=== PATIENT | male | born 1965 | race Caucasian/White ===

== ENCOUNTER 2016-10-23 04:23 | Inpatient (IN) ==
[2016-10-23] MEDS ORDERED: SODIUM CHLORIDE 0.9% 1,000 ML IV STA (04:42)
[2016-10-23] MEDS ORDERED: ASPIRIN 325 MG TABLET PO STA (04:42)
[2016-10-23] MEDS ORDERED: DILTIAZEM 50 MG/10 ML VIAL IV STA (04:43)
[2016-10-23] MEDS ORDERED: ASPIRIN 325 MG TABLET ONE (04:58)
[2016-10-23 05:01] LABS: Basophils % 0.4 % (0.0-0.8); Eosinophils # 0.3 10*3/uL (0.0-0.87); Hematocrit 36.3 VOL% (42.0-52.0); Hemoglobin 12.4 GM/DL (14.0-18.0); Immature Granulocytes % 0.3 %; Immature Granulocytes Absolute 0.03 #; Lymphocytes % 33.3 % (21.2-54.2); Mean Corpuscular HGB Conc 34.2 GM/DL (32-36); Mean Corpuscular Hemoglobin 29 PG (27-34); Mean Corpuscular Volume 83.6 FL (87-102); Mean Platelet Volume 9.3 FL (9.6-12.0); Monocytes # 0.9 10*3/uL (0.11-0.8); Monocytes % 9.7 % (1.7-12.7); Neutrophils # 4.8 10*3/uL (1.4-7.4); Neutrophils % 53.3 % (38.7-73.9); Platelet Count 418 T/CUMM (130-400); Red Blood Count 4.34 MC/CUMM (3.8-5.5); Red Cell Distribution Width 14.6 % (9.3-17.3); White Blood Count 8.9 T/CUMM (4-12)
[2016-10-23 05:22] LABS: PT Patient Result 10.7 SECS
[2016-10-23 05:46] LABS: Calcium 8.6 MG/DL (8.5-10.1); Osmolality,Calculated 278.3 MOS/KG (273-304); Potassium 3.3 MMOL/L (3.5-5.1)
--- NOTE | 2016-10-23 05:47 | Emergency Department Note ---
INatalee Emily, am scribing for, and in the presence of, Brad Oseguera MD 04: 49. IOumar Kevin Lee, MD, personally performed the services described in this documentation, ascribed by Latisha Albright in my presence, and it is both accurate and complete . Arrival - Arrival Chief Complaint: Chest Pain Stated Complaint: NECK PAIN AND CHEST TIGHTNESS NAUSEA ED Nursing Triage Note: Pt to triage with c/o chest pain, nausea, weakness, dizzy and left neck pain that started an hour [employer]. Mode of Arrival: Ambulatory Limitations: No Limitations Source: Patient, Significant other - History of Present Illness HPI Narrative: Pt is a 51 y/o male who came to ED with c/o left neck pain and rapid palpitations that suddenly started this morning. Pt sees Dr. Liborio Flannery PCP. Pt is actively shaking suddenly that did not start until in the ED. Pt was seen at [facility] by Dr. Fulton and told her was in top 1% to have these sxs. Pt denies smoking tobacco and drinking ETOH. 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 No other complaint/pain in ED. Onset (ago): hour(s) Consistency: constant Severity: moderate Severity scale (1-10): 5 Quality: other (racing) Allergies/Adverse Reactions: Allergies Allergy/AdvReac Type Severity Reaction Status Date / Time iodine Allergy Severe ANAPHYLAXIS Verified 10/23/16 04:32 Home Medications: Home Medications Medication Instructions Recorded Confirmed Type HYDROcodone/ACETAMIN 10-325 [[place] 1 tablet PO Q6H 01/30/16 10/23/16 History 10-325] Albuterol Sulfate [Proair HFA] 2 puff INH BID 04/26/16 10/23/16 History Aspirin [Ecotrin] 325 mg PO QAM PRN 04/26/16 10/23/16 History Atorvastatin [Lipitor] 10 mg PO BEDTIME 04/26/16 10/23/16 History Gabapentin 300 mg PO Q8H 04/26/16 10/23/16 History hydroCHLOROthiazide 12.5 mg PO DAILY 04/26/16 10/23/16 History [Hydrochlorothiazide] Fluticasone 50 Mcg Nasal [place] 2 spray BOTH NARES DAILY 05/02/16 10/23/16 History [Flonase Nasal [place]] Multivit-Mins/Iron/Folic/Lycop 1 each PO DAILY 05/02/16 10/23/16 History [Centrum Men's Tablet] Naproxen [Naprosyn Tab] 500 mg PO Q12H PRN #30 tablet 09/07/16 10/23/16 Rx Docusate Sodium [Stool Softener] 2 tablet PO DAILY 10/23/16 10/23/16 History Fexofenadine [Patricia] 180 mg PO DAILY 10/23/16 10/23/16 History Fluticasone/Salmeterol 250-50 1 puff INH BID 10/23/16 10/23/16 History [Advair 250-50] Omeprazole [Prilosec] 40 mg PO DAILY 10/23/16 10/23/16 History Review of System - Review of System 12 point system: reviewed and no additional remarkable complaints except as stated - Review of System Constitutional: Present: other (shaking in ED). Absent: diaphoresis, fever Respiratory: Absent: respiratory distress Cardiovascular: Present: palpitations (racing). Absent: chest pain, syncope Gastrointestinal: Absent: abdominal pain, nausea, vomiting Musculoskeletal: Present: neck pain (left sided). Absent: arm pain, back pain, leg pain Skin: Absent: rash Neurological: Absent: headache Medical,Surgical,& Family Hx - Medical History Cardio: History of: Hypertension Psychological: History of: Depression (ptsd), Psychiatric Problems (PTSD) HEENT: History of: HEENT Problems (septoplasty) Respiratory: History of: Bronchitis Genitourinary: History of: Kidney Stones Musculoskeletal: History of: Back/Neck Problems Hematology: No history of: Anemia - Surgical History Abdominal Surgeries: Surgical HX of: Appendectomy, Colonoscopy Reproductive Surgeries: Surgical HX of;: Vasectomy Orthopedic Surgeries: Surgical HX of;: Orthopedic Surgery (jaw surgery) - Family History Family History: Reports;: Family Heart Disease (mother and father), Family Hypertension (mother), Family Stroke (mother tia) - Social History Smoking Status: Never smoker Frequency of Alcohol Use: None Type of Drug Use: None Marital Status: Lives With:: Spouse Functional capacity: independent ambulation Exam Vital Signs: Vital Signs Temperature 98.4 F 10/23/16 04:27 Pulse Rate 99 H 10/23/16 04:27 Respiratory Rate 20 10/23/16 04:30 Blood Pressure 122/91 10/23/16 04:27 O2 Sat by Pulse Oximetry 98 10/23/16 04:45 - General General appearance: alert, anxious (trembling actively) - Head Head exam: Present: atraumatic, normocephalic - Eye Eye exam: Present: PERRL, EOMI - ENT ENT exam: Present: mucous membranes moist. Absent: mucous membranes dry - Neck Neck exam: Present: full ROM. Absent: tenderness - Chest Chest inspection: Present: symmetric chest wall rise - Respiratory Respiratory exam: Present: normal lung sounds bilaterally. Absent: respiratory distress - Cardiovascular Cardiovascular exam: Present: tachycardia, irregular rhythm - Extremities Exam Extremities exam: Present: full ROM, pedal edema - Neurological Exam Neurological exam: Present: alert, oriented X3, CN II-XII intact. Absent: motor sensory deficit - Psychiatric Psychiatric exam: Present: normal affect, anxious - Skin Skin exam: Present: warm, dry Course Course Narrative: pts rate improved with fluids and dilt IV. pt remains in afib will admit for tele and cards eval Results - Labs CBC & BMP: 10/23/16 04:42 Lab Results: I have reviewed the patients labs Labs: Laboratory Tests 10/23/16 04:42 WBC 8.9 RBC 4.34 Hgb 12.4 L Hct 36.3 L MCV 83.6 L Plt Count 418 H MPV 9.3 L [place] # (Auto) 0.9 H Laboratory Tests 10/23/16 04:42 WBC 8.9 RBC 4.34 Hgb 12.4 L Hct 36.3 L MCV 83.6 L Plt Count 418 H MPV 9.3 L [place] # (Auto) 0.9 H Laboratory Tests 10/23/16 04:42 INR 1.0 PT Patient/Control Mix 10.7 Laboratory Tests 10/23/16 10/23/16 04:42 04:42 Magnesium 2.2 Troponin I < 0.015 - Diagnostic Findings Procedure: Chest x-ray: image reviewed by me (no acute) Disposition Clinical Impression: afib rvr new onset Case discussed with: patient Disposition: Still a Patient Condition: Stable
--- NOTE | 2016-10-23 05:57 | EKG Report ---
Stationary ECG Study [facility] ER Test Date: 10/23/2016 4:28:03 AM Pat Name: EARLINE HAND Department: Room: Gender: M Fisher Seal: Jenniffer : 1965 Requested by: Brad Guillen Order Number: [id number] Reading MD: JOSE L BENZ Intervals [place] Rate: 145 P: 999 SC: 0 QRS: 70 QRSD: 82 T: -15 QT: 220 QTc: 303 Interpretive Statements ATRIAL FIBRILLATION WITH RAPID VENTRICULAR RESPONSE Electronically Signed On 10-23-16 13:07:23 CDT by JOSE L BENZ [email or web address]
[2016-10-23 06:09] LABS: Free T4 (Free Thyroxine) 1.15 NG/DL (0.76-1.46); Thyroid Stimulating Hormone 2.79 uIU/ml (0.358-3.74)
--- NOTE | 2016-10-23 06:17 | Hospitalist History & Physical ---
Assessment and Plan (1) Atrial fibrillation with RVR Status: Acute Current Visit: Yes (2) Insomnia Status: Acute Current Visit: Yes (3) Chest pain Status: Acute Current Visit: No (4) Depression Status: Chronic Assessment and plan: Patient will be admitted to telemetry. We will replete his potassium. Consult cardiology. Continue home meds as appropriate. Check a free T4 and TSH. Current Visit: No Qualifiers: Depression Type: unspecified Qualified Code(s): F32.9 - Major depressive disorder, single episode, unspecified History of Present Illness Chief complaint: Palpitations History of present illness: Mr. Santana is a 51 year old male with past medical history significant for chronic insomnia tricuspid regurg hypertension obstructive sleep apnea and low back pain who was in his normal state of health until the past week. Patient's been having a sensation of palpitations for the past week. Patient denies excessive caffeine intake. Tonight he was sitting and had not gone to bed yet and all of a sudden he felt like he was running a marathon. He stood up and it kept going and he told his about it. They checked his blood pressure and it was 130/100 which is a little bit on the high side for him. He is talked in terms of a chest pain in the center of his chest. It seemed like it radiated to his neck. He broke out in a sweat and felt dizzy and lightheaded. He said he was not short of breath but it made him feel like pressure made it difficult for him to breathe. Patient found to be in A. fib with RVR and I was consulted to admit him to the emergency room. He normally sees [facility] and has seen a cardiology for [facility] for his tricuspid regurg. He reports that he had a stress test with Lexiscan recently. Home Medications Medication Instructions Recorded Confirmed Type HYDROcodone/ACETAMIN 10-325 [[place] 1 tablet PO Q6H 01/30/16 10/23/16 History 10-325] Albuterol Sulfate [Proair HFA] 2 puff INH BID 04/26/16 10/23/16 History Aspirin [Ecotrin] 325 mg PO QAM PRN 04/26/16 10/23/16 History Atorvastatin [Lipitor] 10 mg PO BEDTIME 04/26/16 10/23/16 History Gabapentin 300 mg PO Q8H 04/26/16 10/23/16 History hydroCHLOROthiazide 12.5 mg PO DAILY 04/26/16 10/23/16 History [Hydrochlorothiazide] Fluticasone 50 Mcg Nasal [place] 2 spray BOTH NARES DAILY 05/02/16 10/23/16 History [Flonase Nasal [place]] Multivit-Mins/Iron/Folic/Lycop 1 each PO DAILY 05/02/16 10/23/16 History [Centrum Men's Tablet] Naproxen [Naprosyn Tab] 500 mg PO Q12H PRN #30 tablet 09/07/16 10/23/16 Rx Docusate Sodium [Stool Softener] 2 tablet PO DAILY 10/23/16 10/23/16 History Fexofenadine [Patricia] 180 mg PO DAILY 10/23/16 10/23/16 History Fluticasone/Salmeterol 250-50 1 puff INH BID 10/23/16 10/23/16 History [Advair 250-50] Omeprazole [Prilosec] 40 mg PO DAILY 10/23/16 10/23/16 History Allergies Allergy/AdvReac Type Severity Reaction Status Date / Time iodine Allergy Severe ANAPHYLAXIS Verified 10/23/16 04:32 Medical,Surgical,& Family Hx - Medical History Cardio: History of: Hypertension Psychological: History of: Depression (ptsd), Psychiatric Problems (PTSD) HEENT: History of: HEENT Problems (septoplasty) Respiratory: History of: Bronchitis Genitourinary: History of: Kidney Stones Musculoskeletal: History of: Back/Neck Problems Hematology: No history of: Anemia - Surgical History Abdominal Surgeries: Surgical HX of: Appendectomy, Colonoscopy Reproductive Surgeries: Surgical HX of;: Vasectomy Orthopedic Surgeries: Surgical HX of;: Orthopedic Surgery (jaw surgery) - Family History Family History: Reports;: Family Heart Disease (mother and father), Family Hypertension (mother), Family Stroke (mother tia) - Social History Smoking Status: Never smoker Frequency of Alcohol Use: None Type of Drug Use: None 12 point system: reviewed and no additional remarkable complaints except as stated Exam - Constitutional Vitals: Period Temp Pulse Resp BP Sys/Mason Pulse Ox Last 24 Hr 98.4 F-98.4 F 99-99 18-20 122-122/91-91 97-98 General appearance: normal weight - Head Head exam: Present: normal inspection - Eye Eye exam: Present: EOMI Pupils: Present: MAXIM - ENT ENT exam: Present: normal exam - Neck Neck exam: Present: normal inspection - Respiratory Respiratory exam: Present: clear to auscultation bilaterally - Cardiovascular Cardiovascular exam: Present: irregular rhythm - GI/Abdominal GI/Abdominal exam: Present: normal bowel sounds - Extremities Exam Extremities exam: Present: normal inspection - Back Exam Back exam: Present: normal inspection - Neurological Exam Neurological exam: Present: alert, oriented X3 - Psychiatric Psychiatric exam: Present: normal affect, normal mood - Skin Skin exam: Present: normal color Results - Labs CBC & BMP: 10/23/16 04:42 10/23/16 04:42
[2016-10-23] MEDS ORDERED: ACETAMINOPHEN 325 MG TABLET PO PRN (06:20)
[2016-10-23] MEDS ORDERED: ZALEPLON 5 MG CAPSULE PO PRN (06:20)
[2016-10-23] MEDS ORDERED: POTASSIUM CHLORIDE 20 MEQ TABLET PO PRN (06:25)
[2016-10-23] MEDS ORDERED: ASPIRIN EC 325 MG TABLET PO PRN (06:27)
[2016-10-23] MEDS ORDERED: NAPROXEN 500 MG TABLET PO PRN (06:27)
[2016-10-23] MEDS ORDERED: GABAPENTIN 300 MG CAPSULE PO SCH ×2 (06:30→21:00)
[2016-10-23] MEDS: ALBUTEROL 2.5 MG/3 ML NEB RESP TX SCH ×2 (07:32→19:49)
--- NOTE | 2016-10-23 07:34 | EKG Report ---
Stationary ECG Study [facility] Test Date: 10/23/2016 7:32:44 AM Pat Name: EARLINE HAND Department: Room: 281 Gender: M Chief Of Staff: : 1965 Requested by: Brad Guillen Order Number: [id number] Reading MD: JOSE L BENZ Intervals [place] Rate: 91 P: 999 [place]: 0 QRS: 40 QRSD: 76 T: 41 QT: 334 QTc: 383 Interpretive Statements ATRIAL FIBRILLATION ABNORMAL RHYTHM ECG Electronically Signed On 10-23-16 13:08:54 CDT by JOSE L BENZ [email or web address]
--- NOTE | 2016-10-23 07:50 | XRay Report ---
XR chest 1V portable Indication: Chest pain Comparison: Chest x-ray dated September 07, 2016 Technique: Single frontal view of the chest. Findings: The cardiomediastinal silhouette is stable in configuration. Chronic change of the lungs without focal consolidation, pleural effusion, or pneumothorax. Visualized osseous and surrounding soft tissue structures appear grossly unchanged. IMPRESSION: Stable chest x-ray without acute cardiopulmonary process demonstrated. PROCEDURE INTERPRETED AT [facility] DEPARTMENT OF RADIOLOGY Final Report Signed by: Dr Tay Hua
[2016-10-23] MEDS: DILTIAZEM INJ 100 MG in SODIUM CHLORIDE 0.9% 100 ML IV SCH (08:02)
[2016-10-23] MEDS: ENOXAPARIN 100 MG/ML SYRINGE SUBCUT SCH ×3 (08:02→21:20)
[2016-10-23] MEDS: FLUTICASONE/SALMETEROL 250-50 DISKUS 14 DOSE INH SCH ×2 (08:49→21:18)
[2016-10-23] MEDS: FEXOFENADINE 180 MG TABLET PO SCH (08:49)
[2016-10-23] MEDS: FLUTICASONE 50 MCG NASAL SPRAY 16 GM BOTTLE BOTH NARES SCH (08:49)
[2016-10-23] MEDS: DOCUSATE SODIUM 100 MG CAPSULE PO SCH (08:49)
[2016-10-23] MEDS: MULTIVITAMIN (CENTRUM) TABLET PO SCH (08:49)
[2016-10-23] MEDS: PANTOPRAZOLE 40 MG TABLET PO SCH (08:50)
[2016-10-23] MEDS: NAPROXEN 250 MG TABLET PO SCH ×2 (08:50→21:23)
[2016-10-23] MEDS ORDERED: hydroCHLOROthiazide 12.5 MG CAPSULE PO SCH (09:00)
--- NOTE | 2016-10-23 10:43 | EKG Report ---
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
[2016-10-23] MEDS: DILTIAZEM 60 MG TABLET PO SCH ×3 (10:53→22:59)
[2016-10-23] MEDS ORDERED: KETOROLAC 30 MG/1 ML VIAL IV ONE (11:01)
[2016-10-23] MEDS ORDERED: POTASSIUM CHLORIDE 20 MEQ TABLET PO ONE (11:06)
--- NOTE | 2016-10-23 20:06 | Cardiology Consult Note ---
I, Denise Stone, MONIE, am scribing for, and in the presence of, Sonido Jo MD 20:04. Assessment and Plan - Time spent with patient Time spent with patient: Greater than 30 minutes (1) Atrial fibrillation with RVR Status: Acute Assessment and plan: The A. fib RVR is probably the cause of his chest pain He had a recent treadmill and echo which showed no ischemia--and no structural abnormality, per patient--we will get these in reviewing the CHAD2S VASCF SCORE is 1, so long-term we will probably keep him on a baby aspirin daily I discussed with the patient the benefits of stopping tobacco/nicotine, the problems with continuing to use it, and options of treatment. The patient is considering this option. The atrial fib is probably due to the hypokalemia We will replete k We will add oral Cardizem Monitor closely If he is doing well overnight we might be able to let him go home with follow- up. The patient has expressed he would not go back to [place]. He apparently had a bad experience there. 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 Current Visit: Yes (2) Hypertension Status: Chronic Current Visit: Yes (3) Dyslipidemia Status: Chronic Assessment and plan: SEE LISTED IN PLAN OF CARE BELOW Current Visit: Yes (4) Chronic pain Status: Acute Assessment and plan: SEE LISTED IN PLAN OF CARE BELOW Current Visit: Yes (5) Chest pain Status: Acute Assessment and plan: SEE LISTED IN PLAN OF CARE BELOW Current Visit: No (6) Tricuspid valve regurgitation Status: Chronic Assessment and plan: SEE LISTED IN PLAN OF CARE BELOW Current Visit: Yes History of Present Illness - Data of Consult Patient: new to practice Consult date: 10/23/16 Requesting Physician: Jose Manuel Browning - Consult Narrative Reason for consult: AFIB 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 Jacobs Mr. Santana is a 51 WM, who presented to the emergency room with complaints of heart palpitations with midsternal chest pain. Significant cardiac history includes hypertension, tricuspid valve regurgitation, GUI, dyslipidemia. He does report a positive family history of cardiac disease in both his mother and father. The patient denies history of or current smoking, alcohol use, or illicit drug use. The patient reports he noted an onset of palpitations approximately 1 week ago, and this worsened during the night. The patient denies shortness of breath, fatigue edema, hematemesis, nausea, or vomiting with this episode. In the ED, an EKG revealed atrial fibrillation with RVR. He was given a Cardizem bolus in the ER, but a drip was not continued due to hypotension. Lovenox as well as aspirin were initiated in the ER. The patient states that he recently had an echocardiogram and a cardiac stress test in July 2016. This was performed at [facility] by his steel roller, Dr. Jacobs. These records have been requested and are not currently available. The patient denies previous arrhythmias or palpitations related to his history of TR. The patient has been admitted to the telemetry unit. Currently the patient is awake and alert, oriented 3. Labs reviewed with hemoglobin and hematocrit noted at 12.4 and 36.3, platelets elevated, 418; PT 10.7 and INR 1.0; potassium 3.3, otherwise electrolytes WNL; creatinine 0.8 BUN 8; TSH 2.79 and T4 1.15; BNP 19; troponins negative. Chest x-ray is without acute cardiopulmonary process EKG reveals AFIB with a rate in the 90s. The patient denies shortness of breath. Potassium has been replaced and Cardizem started orally as long as his blood pressure tolerates. ASSESSMENT/PLAN: 1. NEW ONSET AFIB WITH RVR -start Cardizem 60 mg p.o. every 6 hours hold for SBP < 100 mmHg, continue telemetry monitoring, continue Lovenox 90 subcu every 12. 2. HYPERTENSION -close monitoring and adjust medications during hospitalization accordingly. 3. TRICUSPID VALVE REGURGITATION -requested most recent echocardiogram, patient states performed 07/2016. 4. CHRONIC PAIN -continue home medications. 5. CHEST PAIN -cardiac biomarkers negative, currently free of chest pain. 6. DYSLIPIDEMIA -continue Lipitor 10 mg every evening. CC: Arvind Fischer MD - Home Medications and Allergies Home Medications: Home Medications Medication Instructions Recorded Confirmed Type HYDROcodone/ACETAMIN 10-325 [[place] 1 tablet PO QID 01/30/16 10/23/16 History 10-325] Albuterol Sulfate [Proair HFA] 2 puff INH BID 04/26/16 10/23/16 History Atorvastatin [Lipitor] 10 mg PO BEDTIME 04/26/16 10/23/16 History Gabapentin 300 mg PO BEDTIME 04/26/16 10/23/16 History Fluticasone 50 Mcg Nasal [place] 2 spray BOTH NARES DAILY 05/02/16 10/23/16 History [Flonase Nasal [place]] Multivit-Mins/Iron/Folic/Lycop 1 each PO DAILY 05/02/16 10/23/16 History [Centrum Men's Tablet] Docusate Sodium [Stool Softener] 2 tablet PO DAILY 10/23/16 10/23/16 History Ergocalciferol (Vitamin D2) 50,000 unit PO RYAN 10/23/16 10/23/16 History [Vitamin D2] Fexofenadine [Patricia] 180 mg PO DAILY 10/23/16 10/23/16 History Fluticasone/Salmeterol 250-50 1 puff INH BID 10/23/16 10/23/16 History [Advair 250-50] Naproxen [Naprosyn Tab] 220 mg PO BID 10/23/16 10/23/16 History Omeprazole [Prilosec] 40 mg PO DAILY 10/23/16 10/23/16 History hydroCHLOROthiazide 12.5 mg PO DAILY 10/23/16 10/23/16 History [Hydrochlorothiazide] Allergies/Adverse Reactions: Allergies Allergy/AdvReac Type Severity Reaction Status Date / Time iodine Allergy Severe ANAPHYLAXIS Verified 10/23/16 04:32 - Constitutional Constitutional: Absent: fatigue, lethargy, malaise, weakness - EENT Eyes: Absent: loss of vision Ears: Absent: decreased hearing Nose, mouth and throat: Absent: headache(s) - Cardiovascular Cardiovascular: Present: chest pain at rest, palpitations. Absent: diaphoresis , dyspnea, dyspnea on exertion, edema, lightheadedness, orthopnea - Respiratory Respiratory: Absent: cough, dyspnea, dyspnea on exertion, wheezing - Gastrointestinal Gastrointestinal: Absent: abdominal pain, coffee ground emesis, hematemesis, melena, nausea, vomiting - Genitourinary Genitourinary: Absent: difficulty urinating - Musculoskeletal Musculoskeletal: Present: back pain - Neurological Neurological: Absent: abnormal gait, abnormal speech, confusion, dizziness - Psychiatric Psychiatric: Absent: anxiety - Endocrine Endocrine: Absent: fatigue - Hematologic/Lymphatic Hematologic/Lymphatic: Absent: easy bleeding, easy bruising Medical,Surgical,& Family Hx - Medical History Cardio: History of: Cardiac Dysrhythmia (afib), Hypertension Psychological: History of: Depression (ptsd), Psychiatric Problems (PTSD) HEENT: History of: HEENT Problems (septoplasty) Respiratory: History of: Bronchitis Genitourinary: History of: Kidney Stones Musculoskeletal: History of: Back/Neck Problems Hematology: No history of: Anemia - Surgical History Abdominal Surgeries: Surgical HX of: Appendectomy, Colonoscopy Reproductive Surgeries: Surgical HX of;: Vasectomy Orthopedic Surgeries: Surgical HX of;: Orthopedic Surgery (jaw surgery) - Family History Family History: Reports;: Family Heart Disease (mother and father), Family Hypertension (mother), Family Stroke (mother tia) Additional Family History: spH y y y y , latter day - Social History Smoking Status: Never smoker Frequency of Alcohol Use: None Type of Drug Use: None Marital Status: Lives With:: Spouse Functional capacity: independent ambulation Physical Examination Vital Signs Temp Pulse Resp BP Pulse Ox 98.4 F 99 H 18 122/91 97 10/23/16 04:27 10/23/16 04:27 10/23/16 04:27 10/23/16 04:27 10/23/16 04:27 Exam: General: [Appears well with no apparent distress.] [Pleasant and cooperative. ] [Appears comfortable.] HEENT: [PERRL, normocephalic, atraumatic]. [Mucous membranes moist.] [No jaundice noted.] [Conjunctiva moist and clear, sclerae anicteric.] Neck: [No JVD/HJR, no thyromegaly or lymphadenopathy noted.] [ No carotid bruit appreciated.] Cardiac: [Irregular rate and rhythm.] [No murmur rub or gallop.] [PMI is nondisplaced.] Lungs: [Clear to auscultation without accessory muscle use to assist the respiratory pattern.] [Oxygen in use via nasal cannula.] Abdomen: [Soft, bowel sounds normoactive.] [Nontender and nondistended.] [No abdominal bruit or thrill noted.] [No masses noted.] Musculoskeletal: [No fluid collection.] [Full range of motion is noted.] Extremities: [No clubbing, cyanosis noted.] [ No edema noted.] [Upper extremity pulses 2+.] [Lower extremity pulses 2+.] [Capillary refill less than 3 seconds.] Skin: [No unusual lesions or rashes.] [No skin breakdown appreciated.] Neuro: [Awake, alert and oriented 3.] [Moves all extremities well without hemiparesis or paralysis.] [No essential tremor is appreciated.] Result/EKG - Labs CBC & BMP: 10/23/16 04:42 10/23/16 04:42 Lab Results: I have reviewed the past 24 hour labs Labs: Laboratory Results - last 24 hr 10/23/16 10/23/16 10/23/16 04:42 04:42 04:42 WBC RBC Hgb Hct MCV MCH MCHC RDW Plt Count MPV Neut % (Auto) Lymph % (Auto) [place] % (Auto) Eos % (Auto) Baso % (Auto) Neut # (Auto) Lymph # (Auto) [place] # (Auto) Eos # (Auto) Baso # (Auto) Immature Gran % Nucleated RBC % Immature Gran # Nucleated RBCs # Immature Plt Fraction INR 1.0 PT Patient/Control Mix 10.7 Sodium 141 Potassium 3.3 L Chloride 104 Carbon Dioxide 27 Anion Gap 13.3 BUN 8 Creatinine 0.80 GFR Calculation 131 BUN/Creatinine Ratio 10.00 Glucose 104 Calculated Osmolality 278.3 Calcium 8.6 Magnesium Troponin I < 0.015 B-Natriuretic Peptide Free T4 TSH 3rd Generation 10/23/16 10/23/16 10/23/16 04:42 04:42 04:42 WBC 8.9 RBC 4.34 Hgb 12.4 L Hct 36.3 L MCV 83.6 L MCH 29 MCHC 34.2 RDW 14.6 Plt Count 418 H MPV 9.3 L Neut % (Auto) 53.3 Lymph % (Auto) 33.3 [place] % (Auto) 9.7 Eos % (Auto) 3.0 Baso % (Auto) 0.4 Neut # (Auto) 4.8 Lymph # (Auto) 3.0 [place] # (Auto) 0.9 H Eos # (Auto) 0.3 Baso # (Auto) 0.0 Immature Gran % 0.3 Nucleated RBC % 0.0 Immature Gran # 0.03 Nucleated RBCs # 0.00 Immature Plt Fraction 0.0 INR PT Patient/Control Mix Sodium Potassium Chloride Carbon Dioxide Anion Gap BUN Creatinine GFR Calculation BUN/Creatinine Ratio Glucose Calculated Osmolality Calcium Magnesium 2.2 Troponin I B-Natriuretic Peptide 19 Free T4 TSH 3rd Generation 10/23/16 10/23/16 04:49 08:12 WBC RBC Hgb Hct MCV MCH MCHC RDW Plt Count MPV Neut % (Auto) Lymph % (Auto) [place] % (Auto) Eos % (Auto) Baso % (Auto) Neut # (Auto) Lymph # (Auto) [place] # (Auto) Eos # (Auto) Baso # (Auto) Immature Gran % Nucleated RBC % Immature Gran # Nucleated RBCs # Immature Plt Fraction INR PT Patient/Control Mix Sodium Potassium Chloride Carbon Dioxide Anion Gap BUN Creatinine GFR Calculation BUN/Creatinine Ratio Glucose Calculated Osmolality Calcium Magnesium Troponin I < 0.015 B-Natriuretic Peptide Free T4 1.15 TSH 3rd Generation 2.790 - Diagnostic Findings Procedure: Chest x-ray: report reviewed by me - EKG EKG results: interpreted by me EKG shows: atrial fibrillation IDeysi Dale, MD, personally performed the services described in this documentation, ascribed by Denise Stone NP in my presence, and it is both accurate and complete .
[2016-10-23] MEDS ORDERED: ATORVASTATIN 10 MG TABLET PO SCH (21:00)
[2016-10-24 05:04] LABS: Basophils % 0.4 % (0.0-0.8); Eosinophils # 0.2 10*3/uL (0.0-0.87); Eosinophils % 2.6 % (0.00-10.9); Hematocrit 34.9 VOL% (42.0-52.0); Hemoglobin 11.5 GM/DL (14.0-18.0); Immature Granulocytes % 0.4 %; Immature Granulocytes Absolute 0.03 #; Lymphocytes # 2.8 10*3/uL (1.4-4.0); Lymphocytes % 34.5 % (21.2-54.2); Mean Corpuscular Hemoglobin 28 PG (27-34); Mean Corpuscular Volume 85.1 FL (87-102); Mean Platelet Volume 9.4 FL (9.6-12.0); Monocytes # 0.7 10*3/uL (0.11-0.8); Monocytes % 8.5 % (1.7-12.7); Neutrophils # 4.3 10*3/uL (1.4-7.4); Neutrophils % 53.6 % (38.7-73.9); Platelet Count 393 T/CUMM (130-400); Red Cell Distribution Width 14.7 % (9.3-17.3)
[2016-10-24] MEDS: DILTIAZEM 60 MG TABLET PO SCH (05:29)
[2016-10-24 05:35] LABS: Calcium 8.6 MG/DL (8.5-10.1); Magnesium 2.3 MG/DL (1.8-2.4); Osmolality,Calculated 278.1 MOS/KG (273-304); Potassium 3.9 MMOL/L (3.5-5.1)
[2016-10-24 05:36] LABS: Calcium 8.7 MG/DL (8.5-10.1); Osmolality,Calculated 277.3 MOS/KG (273-304); Potassium 3.9 MMOL/L (3.5-5.1)
[2016-10-24 05:40] LABS: Risk Ratio 4.16; VLDL CHOLESTEROL 19.8 MG/DL
[2016-10-24] MEDS: DILTIAZEM INJ 100 MG in SODIUM CHLORIDE 0.9% 100 ML IV SCH (06:10)
[2016-10-24] MEDS: ALBUTEROL 2.5 MG/3 ML NEB RESP TX SCH (07:20)
[2016-10-24] MEDS: DOCUSATE SODIUM 100 MG CAPSULE PO SCH (08:47)
[2016-10-24] MEDS: PANTOPRAZOLE 40 MG TABLET PO SCH (08:47)
[2016-10-24] MEDS: NAPROXEN 250 MG TABLET PO SCH (08:47)
[2016-10-24] MEDS: MULTIVITAMIN (CENTRUM) TABLET PO SCH (08:47)
[2016-10-24] MEDS: FEXOFENADINE 180 MG TABLET PO SCH (08:47)
[2016-10-24] MEDS: FLUTICASONE/SALMETEROL 250-50 DISKUS 14 DOSE INH SCH (08:48)
[2016-10-24] MEDS ORDERED: DILTIAZEM CD 120 MG CAPSULE PO SCH (09:00)
[2016-10-24] MEDS: FLUTICASONE 50 MCG NASAL SPRAY 16 GM BOTTLE BOTH NARES SCH (09:34)
--- NOTE | 2016-10-24 09:44 | Hospitalist Progress Note ---
Hospitalist: Subjective Interval history: 51 WM, who presented to the emergency room with complaints of heart palpitations with midsternal chest pain. Significant cardiac history included hypertension, tricuspid valve regurgitation, GUI, dyslipidemia. He does report a positive family history of cardiac disease in both his mother and father. The patient denied history of or current smoking, alcohol use, or illicit drug use. The patient reported he noted an onset of palpitations approximately 1 week ago, and this worsened during the night. The patient denied shortness of breath, fatigue edema, hematemesis, nausea, or vomiting with this episode. In the ED, an EKG revealed atrial fibrillation with RVR. He was given a Cardizem bolus in the ER, but a drip was not continued due to hypotension. Lovenox as well as aspirin were initiated in the ER. He was admitted to telemetry. He was started on oral Cardizem. He was being followed by cardiology during this hospitalization. He had hypokalemia which was treated and it resolved. Currently he is back into normal sinus rhythm. He is feeling much better, as all his symptoms have resolved and is being discharged home in an improved and stable condition. Exam - Constitutional Vitals: Period Temp Pulse Resp BP Sys/Mason Pulse Ox Last 24 Hr 96.9 F-98.6 F 67-98 18-20 96-148/61-88 95-98 Results - Labs CBC & BMP: 10/24/16 04:49 10/24/16 04:49
--- NOTE | 2016-10-24 09:50 | Discharge Summary ---
Hospital Course - Hospital Course Hospital Course: 51 WM, who presented to the emergency room with complaints of heart palpitations with midsternal chest pain. Significant cardiac history included hypertension, tricuspid valve regurgitation, GUI, dyslipidemia. He does report a positive family history of cardiac disease in both his mother and father. The patient denied history of or current smoking, alcohol use, or illicit drug use. The patient reported he noted an onset of palpitations approximately 1 week ago, and this worsened during the night. The patient denied shortness of breath, fatigue edema, hematemesis, nausea, or vomiting with this episode. In the ED, an EKG revealed atrial fibrillation with RVR. He was given a Cardizem bolus in the ER, but a drip was not continued due to hypotension. Lovenox as well as aspirin were initiated in the ER. He was admitted to telemetry. He was started on oral Cardizem. He was being followed by cardiology during this hospitalization. He had hypokalemia which was treated and it resolved. Currently he is back into normal sinus rhythm. He is feeling much better, as all his symptoms have resolved and is being discharged home in an improved and stable condition. - Time spent with patient Time with patient DS: Less than 30 minutes Diagnosis - Discharge Diagnosis (1) Atrial fibrillation with RVR Status: Resolved Discharge Plan - Discharge Data Condition at Discharge: Stable Discharge Diet: advance to your usual diet Activity: resume usual activities as tolerated Hygiene: no restrictions Weight Bearing at Discharge: full weight bearing Driving: no restrictions - Discharge Medications New Aspirin EC Tab 81 mg PO DAILY #30 tablet Diltiazem Cd Cap [Cardizem CD] 120 mg PO DAILY #30 capsule Continue HYDROcodone/ACETAMIN 10-325 [[place] 10-325] 1 tablet PO QID Albuterol Sulfate [Proair HFA] 2 puff INH BID Gabapentin 300 mg PO BEDTIME Fluticasone 50 Mcg Nasal [place] [Flonase Nasal [place]] 2 spray BOTH NARES DAILY Multivit-Mins/Iron/Folic/Lycop [Centrum Men's Tablet] 1 each PO DAILY Fluticasone/Salmeterol 250-50 [Advair 250-50] 1 puff INH BID Omeprazole [Prilosec] 40 mg PO DAILY Fexofenadine [Patricia] 180 mg PO DAILY Naproxen [Naprosyn Tab] 220 mg PO BID Ergocalciferol (Vitamin D2) [Vitamin D2] 50,000 unit PO RYAN Atorvastatin [Lipitor] 10 mg PO BEDTIME Docusate Sodium [Stool Softener] 2 tablet PO DAILY hydroCHLOROthiazide [Hydrochlorothiazide] 12.5 mg PO DAILY - Follow Up or Referral - Forms/Instructions Exam - Constitutional Vitals: Period Temp Pulse Resp BP Sys/Mason Pulse Ox Last 24 Hr 96.9 F-98.6 F 67-98 18-20 96-148/61-88 95-98 Exam: General: No Acute Distress HEENT: Normocephalic, atraumatic, Extra ocular movements intact Neck: Supple, No JVD Chest: Clear to auscultation B/L CV: S1 + S2 audible without murmur, gallop or rub Abd: soft, NT, Non-distended, BS + Ext: No edema Skin: No purpura, bruising or rash Rheumatologic: No Joint deformities Neurologic: Strength 5/5 all extremities, no gross sensory deficits Discharge Results Labs on day of discharge: Labs from last 24 hours 10/24/16 10/24/16 10/24/16 04:49 04:49 04:49 WBC 8.0 RBC 4.10 Hgb 11.5 L Hct 34.9 L MCV 85.1 L MCH 28 MCHC 33.0 RDW 14.7 Plt Count 393 MPV 9.4 L Neut % (Auto) 53.6 Lymph % (Auto) 34.5 [place] % (Auto) 8.5 Eos % (Auto) 2.6 Baso % (Auto) 0.4 Neut # (Auto) 4.3 Lymph # (Auto) 2.8 [place] # (Auto) 0.7 Eos # (Auto) 0.2 Baso # (Auto) 0.0 Immature Gran % 0.4 Nucleated RBC % 0.0 Immature Gran # 0.03 Nucleated RBCs # 0.00 Immature Plt Fraction 0.0 Sodium 142 Potassium 3.9 Chloride 108 H Carbon Dioxide 28 Anion Gap 9.9 BUN 5 L Creatinine 0.80 GFR Calculation 131 BUN/Creatinine Ratio 6.00 Glucose 86 Calculated Osmolality 278.1 Calcium 8.6 Magnesium 2.3 Troponin I Triglycerides 99 Cholesterol 154 LDL Cholesterol 103.0 VLDL Cholesterol 19.8 HDL Cholesterol 37 L Heart Disease Risk Ratio 4.16 10/24/16 10/23/16 04:49 10:39 WBC RBC Hgb Hct MCV MCH MCHC RDW Plt Count MPV Neut % (Auto) Lymph % (Auto) [place] % (Auto) Eos % (Auto) Baso % (Auto) Neut # (Auto) Lymph # (Auto) [place] # (Auto) Eos # (Auto) Baso # (Auto) Immature Gran % Nucleated RBC % Immature Gran # Nucleated RBCs # Immature Plt Fraction Sodium 141 Potassium 3.9 Chloride 107 Carbon Dioxide 27 Anion Gap 10.9 BUN 6 L Creatinine 0.80 GFR Calculation 131 BUN/Creatinine Ratio 7.00 Glucose 86 Calculated Osmolality 277.3 Calcium 8.7 Magnesium Troponin I < 0.015 Triglycerides Cholesterol LDL Cholesterol VLDL Cholesterol HDL Cholesterol Heart Disease Risk Ratio DS: Provider Date of admission: 10/23/16 06:20 Primary care physician: Antony Flannery Attending physician on admission: Jose Manuel Browning MD Consults: 10/23/16 06:20 Consult to Physician [CONS] Routine Comment: afib with rvr Consulting Provider: Cardiology - [facility] Person Notified: DANN Date Notified: 10/23/16 Time Notified: 08:01 Discharging clinician: Arvind Fischer MD
[2016-10-24 11:52] VITALS: BP 129/74
--- NOTE | 2016-10-24 12:43 | Cardiology Progress Note ---
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 Jacobs now transitioning to Dr. Jo OCTOBER 23, 2016: Mr. Santana is a 51 WM, who presented to the emergency room with complaints of heart palpitations with midsternal chest pain. Significant cardiac history includes hypertension, tricuspid valve regurgitation, GUI, dyslipidemia. He does report a positive family history of cardiac disease in both his mother and father. The patient denies history of or current smoking, alcohol use, or illicit drug use. The patient reports he noted an onset of palpitations approximately 1 week ago, and this worsened during the night. The patient denies shortness of breath, fatigue edema, hematemesis, nausea, or vomiting with this episode. In the ED, an EKG revealed atrial fibrillation with RVR. He was given a Cardizem bolus in the ER, but a drip was not continued due to hypotension. Lovenox as well as aspirin were initiated in the ER. The patient states that he recently had an echocardiogram and a cardiac stress test in July 2016. This was performed at [facility] by his outplacement consultant, Dr. Jacobs. These records have been requested and are not currently available. The patient denies previous arrhythmias or palpitations related to his history of TR. The patient has been admitted to the telemetry unit. Currently the patient is awake and alert, oriented 3. Labs reviewed with hemoglobin and hematocrit noted at 12.4 and 36.3, platelets elevated, 418; PT 10.7 and INR 1.0; potassium 3.3, otherwise electrolytes WNL; creatinine 0.8 BUN 8; TSH 2.79 and T4 1.15; BNP 19; troponins negative. Chest x-ray is without acute cardiopulmonary process EKG reveals AFIB with a rate in the 90s. The patient denies shortness of breath. Potassium has been replaced and Cardizem started orally as long as his blood pressure tolerates. OCTOBER 24, 2016: Overnight, patient has done well. Denies chest pain, heaviness or tightness. Labs are well controlled. This morning, patient is in normal sinus rhythm. He would like to be discharged. Patient would like to transition to Dr. Jo's care and I will will arrange for follow-up appoint with Dr. Jo approximately 3-4 weeks. Continue Aspirin 81 mg orally daily (ChadVasc Score 1), Atorvastatin 10 mg orally each evening, Diltiazem 120 mill grams orally daily. Will further discuss with Dr. Jo and await additional recommendations. 1. NEW ONSET AFIB WITH RVR - long-term Cardizem. Currently in normal sinus rhythm but overall his rate has been controlled when he has been in atrial fibrillation. 2. HYPERTENSION - adequately controlled. 3. TRICUSPID VALVE REGURGITATION - requested most recent echocardiogram, patient states performed 07/2016. 4. CHRONIC PAIN - continue home medications. 5. CHEST PAIN - cardiac biomarkers negative, currently free of chest pain. Thought to be related to his A. fib with RVR 6. DYSLIPIDEMIA - continue Lipitor 10 mg every evening. Exam (Progress Note) - Constitutional Vitals: Period Temp Pulse Resp BP Sys/Mason Pulse Ox Last 24 Hr 97 F-98.6 F 66-87 18-20 96-148/62-88 95-98 Exam: General: [Appears well with no apparent distress.] [Pleasant and cooperative. ] [Appears comfortable.] HEENT: [PERRL, normocephalic, atraumatic. Mucous membranes moist. No jaundice noted. Conjunctiva moist and clear, sclerae anicteric] Neck: No JVD/HJR, no thyromegaly or lymphadenopathy noted. No carotid bruit appreciated Cardiac: [Regular rate and rhythm.] [No murmur rub or gallop.] PMI is nondisplaced. Lungs: [Clear to auscultation without accessory muscle use to assist the respiratory pattern.] Oxygen in use via nasal cannula Abdomen: Soft, bowel sounds normoactive. Nontender and nondistended. No abdominal bruit or thrill noted. No masses noted. Musculoskeletal: No fluid collection. Decreased range of motion is noted. Extremities: No clubbing, cyanosis noted. [ No edema noted.] Upper extremity pulses 2+. Lower extremity pulses 2+. Capillary refill less than 3 seconds. Skin: No unusual lesions or rashes. No skin breakdown appreciated. Neuro: Awake, alert and oriented 3. Moves all extremities well without hemiparesis or paralysis. No essential tremor is appreciated. Result/EKG - Labs CBC & BMP: 10/24/16 04:49 10/24/16 04:49 Lab Results: I have reviewed the past 24 hour labs Labs: Laboratory Results - last 24 hr 10/24/16 10/24/16 10/24/16 04:49 04:49 04:49 WBC RBC Hgb Hct MCV MCH MCHC RDW Plt Count MPV Neut % (Auto) Lymph % (Auto) [place] % (Auto) Eos % (Auto) Baso % (Auto) Neut # (Auto) Lymph # (Auto) [place] # (Auto) Eos # (Auto) Baso # (Auto) Immature Gran % Nucleated RBC % Immature Gran # Nucleated RBCs # Immature Plt Fraction Sodium 141 142 Potassium 3.9 3.9 Chloride 107 108 H Carbon Dioxide 27 28 Anion Gap 10.9 9.9 BUN 6 L 5 L Creatinine 0.80 0.80 GFR Calculation 131 131 BUN/Creatinine Ratio 7.00 6.00 Glucose 86 86 Calculated Osmolality 277.3 278.1 Calcium 8.7 8.6 Magnesium 2.3 Triglycerides 99 Cholesterol 154 LDL Cholesterol 103.0 VLDL Cholesterol 19.8 HDL Cholesterol 37 L Heart Disease Risk Ratio 4.16 10/24/16 04:49 WBC 8.0 RBC 4.10 Hgb 11.5 L Hct 34.9 L MCV 85.1 L MCH 28 MCHC 33.0 RDW 14.7 Plt Count 393 MPV 9.4 L Neut % (Auto) 53.6 Lymph % (Auto) 34.5 [place] % (Auto) 8.5 Eos % (Auto) 2.6 Baso % (Auto) 0.4 Neut # (Auto) 4.3 Lymph # (Auto) 2.8 [place] # (Auto) 0.7 Eos # (Auto) 0.2 Baso # (Auto) 0.0 Immature Gran % 0.4 Nucleated RBC % 0.0 Immature Gran # 0.03 Nucleated RBCs # 0.00 Immature Plt Fraction 0.0 Sodium Potassium Chloride Carbon Dioxide Anion Gap BUN Creatinine GFR Calculation BUN/Creatinine Ratio Glucose Calculated Osmolality Calcium Magnesium Triglycerides Cholesterol LDL Cholesterol VLDL Cholesterol HDL Cholesterol Heart Disease Risk Ratio - EKG EKG results: interpreted by me EKG shows: sinus rhythm Specialty Discharge - Follow Up or Referrals Follow up with: Sonido Jo MD [Physician] - (FOLLOW UP WITH DR. JO IN 3 WEEKS WITH EKG,CBC,BMP, AND MG)
[2016-10-25] MEDS ORDERED: ASPIRIN EC 81 MG TABLET PO SCH (09:00)
== END 2016-10-24 15:08 | disposition home or self-care (01) | DRG 310 ==
LOC: N.ED 04:23 → N.EDINP 06:20 → SUATTDRO 06:20 → N.TELEN 06:38 → UNDODISIN 10-24 13:00
PROVIDERS: ADMIT Internal Medicine; ATTEND Hospitalist

== ENCOUNTER 2016-10-30 09:12 | Observation (INO) ==
[2016-10-30] MEDS ORDERED: FLUMAZENIL 0.5 MG/5 ML VIAL IV ONE (10:07)
[2016-10-30 10:18] LABS: Basophils % 0.4 % (0.0-0.8); Eosinophils # 0.3 10*3/uL (0.0-0.87); Eosinophils % 3.6 % (0.00-10.9); Hematocrit 33.4 VOL% (42.0-52.0); Hemoglobin 10.9 GM/DL (14.0-18.0); Immature Granulocytes % 0.1 %; Immature Granulocytes Absolute 0.01 #; Lymphocytes # 2.4 10*3/uL (1.4-4.0); Lymphocytes % 31.1 % (21.2-54.2); Mean Corpuscular HGB Conc 32.6 GM/DL (32-36); Mean Corpuscular Hemoglobin 28 PG (27-34); Mean Corpuscular Volume 86.1 FL (87-102); Mean Platelet Volume 9.9 FL (9.6-12.0); Monocytes # 0.6 10*3/uL (0.11-0.8); Monocytes % 8.5 % (1.7-12.7); Neutrophils # 4.3 10*3/uL (1.4-7.4); Neutrophils % 56.3 % (38.7-73.9); Platelet Count 369 T/CUMM (130-400); Red Blood Count 3.88 MC/CUMM (3.8-5.5); Red Cell Distribution Width 15.1 % (9.3-17.3); White Blood Count 7.6 T/CUMM (4-12)
--- NOTE | 2016-10-30 10:30 | XRay Report ---
History: Chest pain. Atrial fibrillation Date: 10/30/2016 Study: Chest x-ray AP portable Comparison exam: October 25, 2016 The cardiac silhouette is upper normal in size. The mediastinal contours are unremarkable. The pulmonary vasculature is not engorged. The lungs and pleural spaces are generally clear. Shallow breath. Osseous structures are unchanged. Impression: No acute cardiopulmonary process compared to the previous study PROCEDURE INTERPRETED AT [facility] DEPARTMENT OF RADIOLOGY Final Report Signed by: Dr. Doreen Eason
[2016-10-30 10:39] LABS: PT Patient Result 10.7 SECS; Partial Thromboplastin Time 28.7 SECS (0-40)
[2016-10-30 10:52] LABS: Alanine Aminotransferase 32 U/L (16-61); Albumin 2.9 G/DL (3.4-5.0); Alkaline Phosphatase 111 U/L (45-117); Aspartate Amino Transferase 18 U/L (0-37); Blood Urea Nitrogen 5 MG/DL (7-18); Calcium 8.3 MG/DL (8.5-10.1); Glucose 91 MG/DL (74-106); Osmolality,Calculated 279.1 MOS/KG (273-304); Potassium 3.1 MMOL/L (3.5-5.1); Sodium 142 MMOL/L (136-145); Total Protein 6.9 G/DL (6.4-8.3); Troponin I Only < 0.015 NG/ML (0.00-0.045)
[2016-10-30] MEDS ORDERED: POTASSIUM CHLORIDE 20 MEQ TABLET PO STA (11:04)
--- NOTE | 2016-10-30 11:39 | Emergency Department Note ---
Jesus Fox Rolonda, am scribing for, and in the presence of, Vikas Brandt MD 10:16. Rikki Fox Phillip K, MD, personally performed the services described in this documentation, ascribed by Dinora Lee in my presence, and it is both accurate and complete 139 . Arrival - Arrival Chief Complaint: Arrhythmia/Palpitations ED Nursing Triage Note: pt was dx with afib on 10/22/16. pt called ems this am for afib then went into afib with rvr. pt was ahocked at 49 and is now in sinus Mode of Arrival: Stretcher Limitations: No Limitations Source: Patient, Old Records Reviewed, RN Notes Reviewed - History of Present Illness HPI Narrative: Pt is a 51 y/o male who presents to the ED via EMS for further evaluation of heart palpitations with an onset of hours. Pt has a PMHx of Cardiac Dysrhythmia and HTN. Pt was seen in ED on 10/23/2016 and 10/25/2016 for chest pain. Pt was recently Dx with AFib on 10/22/2016. states that pt's palpitation started last nigh while he was home. She states that pt took his BP which was 150/104. At time of triage, pt's BP was 120/69. 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 She states that pt had CP today which prompted him to call EMS. She confirms that pt is taking ASA 80 mg and Cortisol 120 mg/day. Pt's last dose was 0700 this morning. Pt was asleep upon exam. No other complaint/pain in ED. patient was cardioverted with 50 J in the ambulance before arrival. Patient was not hypotensive at the time of cardioversion. Patient was given 10 mg of Versed to sedate before his cardioversion. Onset (ago): hour(s) Consistency: constant Severity: moderate Severity scale (1-10): 4 Allergies/Adverse Reactions: Allergies Allergy/AdvReac Type Severity Reaction Status Date / Time iodine Allergy Severe ANAPHYLAXIS Verified 10/25/16 21:33 Home Medications: Home Medications Medication Instructions Recorded Confirmed Type HYDROcodone/ACETAMIN 10-325 [[place] 1 tablet PO QID 01/30/16 10/30/16 History 10-325] Albuterol Sulfate [Proair HFA] 2 puff INH BID 04/26/16 10/30/16 History Atorvastatin [Lipitor] 10 mg PO BEDTIME 04/26/16 10/30/16 History Gabapentin 300 mg PO BEDTIME 04/26/16 10/30/16 History Fluticasone 50 Mcg Nasal [place] 2 spray BOTH NARES QAM 05/02/16 10/30/16 History [Flonase Nasal [place]] Multivit-Mins/Iron/Folic/Lycop 1 each PO QAM 05/02/16 10/30/16 History [Centrum Men's Tablet] Docusate Sodium [Stool Softener] 200 mg PO BEDTIME 10/23/16 10/30/16 History Ergocalciferol (Vitamin D2) 50,000 unit PO RYAN 10/23/16 10/30/16 History [Vitamin D2] Fexofenadine [Patricia] 180 mg PO QAM 10/23/16 10/30/16 History Fluticasone/Salmeterol 250-50 1 puff INH BID 10/23/16 10/30/16 History [Advair 250-50] Omeprazole [Prilosec] 40 mg PO QAM 10/23/16 10/30/16 History Metoclopramide Tab [Reglan Tab] 5 mg PO ACHS #40 tablet 10/25/16 10/30/16 Rx Aspirin EC Tab 81 mg PO QAM 10/30/16 10/30/16 History Diltiazem Cd Cap [Cardizem CD] 120 mg PO QAM 10/30/16 10/30/16 History Promethazine Tab [Phenergan Tab] 25 mg PO Q6H PRN 10/30/16 10/30/16 History Review of System - Review of System 12 point system: reviewed and no additional remarkable complaints except as stated - Review of System Constitutional: Absent: chills Eyes: Absent: discharge Head/Ears/Nose/Throat: Absent: earache Respiratory: Absent: cough Cardiovascular: Present: chest pain, palpitations Gastrointestinal: Absent: abdominal pain Genitourinary male: Absent: dysuria Musculoskeletal: Absent: arm pain, back pain Skin: Absent: rash Neurological: Absent: headache Psychiatric: Absent: anxiety Endocrine: Absent: cold intolerance Hematological/Lymphatic: Absent: easy bleeding Allergic/Immunologic: Absent: facial swelling Medical,Surgical,& Family Hx - Medical History Cardio: History of: Cardiac Dysrhythmia (afib), Hypertension Psychological: History of: Depression (ptsd), Psychiatric Problems (PTSD) HEENT: History of: HEENT Problems (septoplasty) Respiratory: History of: Bronchitis Genitourinary: History of: Kidney Stones Musculoskeletal: History of: Back/Neck Problems Hematology: No history of: Anemia - Surgical History Abdominal Surgeries: Surgical HX of: Appendectomy, Colonoscopy Reproductive Surgeries: Surgical HX of;: Vasectomy Orthopedic Surgeries: Surgical HX of;: Orthopedic Surgery (jaw surgery) - Family History Family History: Reports;: Family Heart Disease (mother and father), Family Hypertension (mother), Family Stroke (mother tia) - Social History Smoking Status: Never smoker Frequency of Alcohol Use: None Type of Drug Use: None Exam Vital Signs: Vital Signs Temperature 96.9 F L 10/30/16 09:17 Pulse Rate 90 10/30/16 09:17 Respiratory Rate 18 10/30/16 09:24 Blood Pressure 120/69 10/30/16 09:17 O2 Sat by Pulse Oximetry 94 L 10/30/16 09:17 - General General appearance: alert, in no apparent distress, other (sleepy upon the exam due to IV) - Head Head exam: Present: atraumatic, normocephalic - Eye Eye exam: Present: PERRL, EOMI - ENT ENT exam: Present: mucous membranes moist. Absent: mucous membranes dry - Neck Neck exam: Present: full ROM. Absent: tenderness - Chest Chest inspection: Present: symmetric chest wall rise. Absent: tenderness - Respiratory Respiratory exam: Present: normal lung sounds bilaterally. Absent: wheezes - Cardiovascular Cardiovascular exam: Present: regular rate, irregular rhythm - Abdominal Exam Abdominal exam: Present: soft, normal bowel sounds. Absent: tenderness - Extremities Exam Extremities exam: Present: full ROM. Absent: tenderness - Back Exam Back exam: Present: full ROM. Absent: tenderness - Neurological Exam Neurological exam: Present: alert, oriented X3, CN II-XII intact - Psychiatric Psychiatric exam: Present: normal affect, normal mood - Skin Skin exam: Present: warm, dry, intact, normal color. Absent: rash Course Course Narrative: Patient was given some Romazicon and he became more alert however he is somewhat still lethargic. We will admit for observation overnight and that he was cardioverted and is very lethargic. Results - Labs CBC & BMP: 10/30/16 09:49 10/30/16 09:49 Lab Results: I have reviewed the patients labs Labs: Laboratory Tests 10/30/16 09:49 WBC 7.6 RBC 3.88 Hgb 10.9 L Hct 33.4 L MCV 86.1 L Plt Count 369 - EKG EKG results: interpreted by ERMLiborio, sinus rhythm (Rate controlled) - Diagnostic Findings Procedure: Chest x-ray: report reviewed by me (No acute cardiopulmonary process compared to the previous study.) Disposition Clinical Impression: Hypokalemia, Atrial fibrillation, Chest pain resolved, Lethargy secondary to Versed Case discussed with: patient Disposition: Disch To Home/Self Care Condition: Stable Additional Instructions: Follow-up with Dr. Jo.
--- NOTE | 2016-10-30 11:44 | EKG Report ---
Stationary ECG Study [facility] ER Test Date: 10/30/2016 9:38:30 AM Pat Name: EARLINE HAND Department: Room: Gender: M Video Clerk: : 1965 Requested by: Vikas Donahue Order Number: [id number] Reading MD: NASH OROZCO Intervals Alvin Rate: 80 P: 6 TX: 196 QRS: 4 QRSD: 89 T: 31 QT: 383 QTc: 418 Interpretive Statements SINUS RHYTHM Electronically Signed On 10-30-16 17:29:17 CDT by NASH OROZCO [email or web address]
--- NOTE | 2016-10-30 12:24 | Hospitalist History & Physical ---
Assessment and Plan (1) Atrial fibrillation Status: Acute Assessment and plan: Impression: 1. Paroxysmal atrial fibrillation 2. Hypokalemia 3. Side effect of sedative medication Plan: Replace potassium. Observe overnight. Would consider discharge in the morning if he remains in sinus mechanism and his potassium has been repleted. I still am not sure why he received any electricity on the ambulance ride over here. This note was completed using [employer] voice recognition software. There may be winterizer errors as a result. Current Visit: Yes Qualifiers: Atrial fibrillation type: paroxysmal Qualified Code(s): I48.0 - Paroxysmal atrial fibrillation History of Present Illness Chief complaint: Heart racing History of present illness: Mr. Santana is a 51 year old male History is from the . She appears to be a reliable informant. She reports that the patient has had some chest pain that started late last year. At some point he ended up having a stress test and echocardiogram, and the says that these tests were normal. He has been to the emergency room several times for evaluation of chest pain. Admissions here have led to diagnoses of chest wall pain and noncardiac chest pain. Last week, he was admitted in atrial fibrillation. At that time, he was given diltiazem with conversion and good rate control. He did not require anticoagulation based on risk factor calculation. He was discharged on aspirin and diltiazem. He has no prior history of any myocardial infarction, congestive heart failure, or stroke. On the morning of admission he was at home and noted the sudden onset of palpitations. His called the ambulance, and he was transported to the hospital. On the way here, he apparently was cardioverted. We do not have a run record from the ambulance. The telemetry strips show a normal blood pressure and heart rate of 138 prior to cardioversion. He received 10 mg of Versed prior to cardioversion. Indications for cardioversion are not clear from the available records. He is now difficult for rales, and is in sinus mechanism. Home Medications Medication Instructions Recorded Confirmed Type HYDROcodone/ACETAMIN 10-325 [[place] 1 tablet PO QID 01/30/16 10/30/16 History 10-325] Albuterol Sulfate [Proair HFA] 2 puff INH BID 04/26/16 10/30/16 History Atorvastatin [Lipitor] 10 mg PO BEDTIME 04/26/16 10/30/16 History Gabapentin 300 mg PO BEDTIME 04/26/16 10/30/16 History Fluticasone 50 Mcg Nasal [place] 2 spray BOTH NARES QAM 05/02/16 10/30/16 History [Flonase Nasal [place]] Multivit-Mins/Iron/Folic/Lycop 1 each PO QAM 05/02/16 10/30/16 History [Centrum Men's Tablet] Docusate Sodium [Stool Softener] 200 mg PO BEDTIME 10/23/16 10/30/16 History Ergocalciferol (Vitamin D2) 50,000 unit PO RYAN 10/23/16 10/30/16 History [Vitamin D2] Fexofenadine [Patricia] 180 mg PO QAM 10/23/16 10/30/16 History Fluticasone/Salmeterol 250-50 1 puff INH BID 10/23/16 10/30/16 History [Advair 250-50] Omeprazole [Prilosec] 40 mg PO QAM 10/23/16 10/30/16 History Metoclopramide Tab [Reglan Tab] 5 mg PO ACHS #40 tablet 10/25/16 10/30/16 Rx Aspirin EC Tab 81 mg PO QAM 10/30/16 10/30/16 History Diltiazem Cd Cap [Cardizem CD] 120 mg PO QAM 10/30/16 10/30/16 History Promethazine Tab [Phenergan Tab] 25 mg PO Q6H PRN 10/30/16 10/30/16 History Allergies Allergy/AdvReac Type Severity Reaction Status Date / Time iodine Allergy Severe ANAPHYLAXIS Verified 10/25/16 21:33 Medical,Surgical,& Family Hx - Medical History Cardio: History of: Cardiac Dysrhythmia (afib), Hypertension Psychological: History of: Depression (ptsd), Psychiatric Problems (PTSD) HEENT: History of: HEENT Problems (septoplasty) Respiratory: History of: Bronchitis Genitourinary: History of: Kidney Stones Musculoskeletal: History of: Back/Neck Problems Hematology: No history of: Anemia - Surgical History Abdominal Surgeries: Surgical HX of: Appendectomy, Colonoscopy Reproductive Surgeries: Surgical HX of;: Vasectomy Orthopedic Surgeries: Surgical HX of;: Orthopedic Surgery (jaw surgery) - Family History Family History: Reports;: Family Heart Disease (mother and father), Family Hypertension (mother), Family Stroke (mother tia) - Social History Smoking Status: Never smoker Frequency of Alcohol Use: None Type of Drug Use: None Marital Status: Lives With:: Spouse 12 point system: reviewed and no additional remarkable complaints except as stated Review of systems: Gen.: No weight loss or gain over the past year. Eyes: No glaucoma or cataracts. No change in visual acuity. Ears nose and throat: No change in auditory acuity, sinus problems, nasal allergies, or sore throat. Lungs: It sounds like he may have allergic bronchitis. He uses an inhaler twice a day. Cardiac: See history of present illness. GI: No liver disease, nausea, vomiting, or diarrhea. : No hematuria or UTI. He has had kidney stones.. Neurologic: No seizures. Endocrine: No thyroid disease. Hematologic: No anemia or blood dyscrasias. Skin: No rashes or lesions. Musculoskeletal: Chronic back pain Exam - Constitutional Vitals: Period Temp Pulse Resp BP Sys/Mason Pulse Ox Last 24 Hr 96.9 F-96.9 F 90-90 18-18 120-120/69-69 94 Vital signs are noted above. General: He is a pleasant sleepy quite man in no distress. HEENT: Pupils are round and reactive. Extraocular muscles are normal. Gaze is conjugate. Fundi were not examined. There is no nasal discharge. Mucous membranes are moist. Neck: Supple, without mass, bruit, or venous distention. Cardiac: Rhythm is regular. The carotids are normal. I don't hear murmur gallop or rub. Peripheral pulses are intact. Lungs: Clear without rales, wheezes, or rubs. Abdomen: Soft and nontender. Bowel sounds are present. No mass palpable. Rectal: Not done. Extremities: No cyanosis, clubbing, or edema. Skin: No significant rash or lesion. Neurologic: He is awake and alert. He moves all 4 extremities. Cranial nerves appear to be intact. No pathologic reflexes are elicited. Results - Labs CBC & BMP: 10/30/16 09:49 10/30/16 09:49 Lab Results: I have reviewed the past 24 hour labs
[2016-10-30] MEDS ORDERED: ZALEPLON 5 MG CAPSULE PO PRN (12:28)
[2016-10-30] MEDS ORDERED: ENOXAPARIN 40 MG/0.4 ML SYRINGE SUBCUT SCH (12:30)
[2016-10-30] MEDS ORDERED: POTASSIUM CHLORIDE 20 MEQ TABLET PO ONE ×2 (12:30→21:26)
[2016-10-30] MEDS ORDERED: PROMETHAZINE 25 MG TABLET PO PRN (13:31)
[2016-10-30] MEDS: METOCLOPRAMIDE 5 MG TABLET PO SCH ×2 (16:24→22:19)
[2016-10-30] MEDS ORDERED: GABAPENTIN 300 MG CAPSULE PO SCH (21:00)
[2016-10-30] MEDS ORDERED: DOCUSATE SODIUM 100 MG CAPSULE PO SCH (21:00)
[2016-10-30] MEDS ORDERED: ATORVASTATIN 10 MG TABLET PO SCH (21:00)
[2016-10-30] MEDS ORDERED: NITROGLYCERIN SL 0.4 MG TABLET SL PRN (21:22)
[2016-10-30] MEDS ORDERED: ASPIRIN 325 MG TABLET ONE (21:23)
[2016-10-30] MEDS ORDERED: MORPHINE 2 MG/1 ML SYRINGE ONE (21:25)
[2016-10-30] MEDS ORDERED: MORPHINE 2 MG/1 ML SYRINGE IV ONE (21:26)
[2016-10-30] MEDS ORDERED: ASPIRIN 325 MG TABLET PO ONE (21:27)
[2016-10-30] MEDS ORDERED: MORPHINE 2 MG/1 ML SYRINGE IV PRN (21:34)
--- NOTE | 2016-10-30 21:35 | Hospitalist Progress Note ---
Hospitalist: Subjective Interval history: I was called to see patient who was complaining of chestpain located in the ant chest wall, non radiating, feels like pressure. There was no associated nausea, vomiting, diaphoresis though he looked a bit pale. His EKG showed sinus rhythm with no acute changes.Vitals were stable. Plan Serial cardiac enzymes Replace Potassium ASA Morphine CXR Exam - Constitutional Vitals: Period Temp Pulse Resp BP Sys/Mason Pulse Ox Last 24 Hr 96.6 F-96.9 F 70-90 16-18 94-120/60-69 94-98 General appearance: no acute distress - Head Head exam: Present: normal inspection - Respiratory Respiratory exam: Present: clear to auscultation bilaterally - Cardiovascular Cardiovascular exam: Present: regular rate and rhythm - GI/Abdominal GI/Abdominal exam: Present: normal bowel sounds - Extremities Exam Extremities exam: Present: normal inspection - Neurological Exam Neurological exam: Present: alert, oriented X3 Results - Labs CBC & BMP: 10/30/16 09:49 10/30/16 09:49
[2016-10-30] MEDS: FLUTICASONE/SALMETEROL 250-50 DISKUS 14 DOSE INH SCH (22:19)
[2016-10-30 22:27] LABS: Troponin I Only < 0.015 NG/ML (0.00-0.045)
[2016-10-30] MEDS: ALBUTEROL 2.5 MG/3 ML NEB RESP TX SCH (23:15)
[2016-10-31 01:56] LABS: Troponin I Only < 0.015 NG/ML (0.00-0.045)
[2016-10-31 06:26] LABS: Calcium 8.4 MG/DL (8.5-10.1); Osmolality,Calculated 276.3 MOS/KG (273-304); Potassium 4.2 MMOL/L (3.5-5.1)
[2016-10-31 06:59] LABS: Troponin I Only < 0.015 NG/ML (0.00-0.045)
--- NOTE | 2016-10-31 07:09 | XRay Report ---
Exam: XR chest 1V Date: 10/30/2016 9:22 PM Indication: Chest pain Comparison: 10/30/2016 Technical: AP Findings: External cardiac leads are present. The heart, lungs, mediastinum and bony structures are intact. Impression: 1. No acute cardiopulmonary pathology. PROCEDURE INTERPRETED AT [facility] DEPARTMENT OF RADIOLOGY Final Report Signed by: Dr. Nils Hussein
--- NOTE | 2016-10-31 07:11 | EKG Report ---
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
[2016-10-31] MEDS: ALBUTEROL 2.5 MG/3 ML NEB RESP TX SCH (07:42)
[2016-10-31] MEDS ORDERED: PANTOPRAZOLE 40 MG TABLET PO SCH (09:00)
[2016-10-31] MEDS ORDERED: FEXOFENADINE 180 MG TABLET PO SCH (09:00)
[2016-10-31] MEDS ORDERED: DILTIAZEM CD 120 MG CAPSULE PO SCH (09:00)
[2016-10-31] MEDS ORDERED: MULTIVITAMIN (CENTRUM) TABLET PO SCH (09:00)
[2016-10-31] MEDS ORDERED: FLUTICASONE 50 MCG NASAL SPRAY 16 GM BOTTLE BOTH NARES SCH (09:00)
[2016-10-31] MEDS ORDERED: ASPIRIN EC 81 MG TABLET PO SCH (09:00)
[2016-10-31] MEDS: METOCLOPRAMIDE 5 MG TABLET PO SCH ×2 (09:24→11:34)
[2016-10-31] MEDS: FLUTICASONE/SALMETEROL 250-50 DISKUS 14 DOSE INH SCH (09:38)
--- NOTE | 2016-10-31 11:35 | Discharge Summary ---
Hospital Course - Hospital Course Hospital Course: 51-year-old man who was recently discharged about a week ago after being managed conservatively for new onset paroxysmal atrial fibrillation, he was started on rate control meds and baby aspirin for CVA prevention. He presented yesterday with palpitations which started a few hours before presentation here at the hospital. He was said to have been shocked with hospital for atrial fibrillation with rapid ventricular response. We admitted to the floor, placed on telemetry and supplemented his potassium which was 3.1 on admission and may have triggered his arrhythmia. He remained in sinus rhythm throughout his entire stay, and hemodynamically stable. During evaluation on day of discharge, he was in no obvious distress. Palpitation had subsided. Review of his serial EKG shows sinus rhythm with no ST changes, PRESLEY panel was negative. He was stable enough for discharge home and to keep his outpatient cardiology appointment as well as primary care physician. - Time spent with patient Time with patient DS: Greater than 30 minutes Discharge Plan - Discharge Data Disposition: Disch To Home/Self Care Condition at Discharge: Stable Discharge Diet: advance to your usual diet, heart healthy Activity: resume usual activities as tolerated Hygiene: no restrictions - Discharge Medications Continue HYDROcodone/ACETAMIN 10-325 [[place] 10-325] 1 tablet PO QID Albuterol Sulfate [Proair HFA] 2 puff INH BID Gabapentin 300 mg PO BEDTIME Fluticasone 50 Mcg Nasal [place] [Flonase Nasal [place]] 2 spray BOTH NARES QAM Multivit-Mins/Iron/Folic/Lycop [Centrum Men's Tablet] 1 each PO QAM Fluticasone/Salmeterol 250-50 [Advair 250-50] 1 puff INH BID Omeprazole [Prilosec] 40 mg PO QAM Fexofenadine [Patricia] 180 mg PO QAM Ergocalciferol (Vitamin D2) [Vitamin D2] 50,000 unit PO RYAN Metoclopramide Tab [Reglan Tab] 5 mg PO ACHS #40 tablet Aspirin EC Tab 81 mg PO QAM Promethazine Tab [Phenergan Tab] 25 mg PO Q6H PRN PRN Reason: Nausea/Vomiting Atorvastatin [Lipitor] 10 mg PO BEDTIME Docusate Sodium [Stool Softener] 200 mg PO BEDTIME Diltiazem Cd Cap [Cardizem CD] 120 mg PO QAM - Follow Up or Referral - Forms/Instructions Additional Discharge Instructions: Follow-up with primary care physician. Keep cardiology appointment as previously scheduled. Exam - Constitutional Vitals: Period Temp Pulse Resp BP Sys/[place]ason Pulse Ox Last 24 Hr 96.6 F-97.8 F 53-78 16-22 94-123/57-83 94-98 General appearance: normal weight - Head Head exam: Present: normal inspection, normocephalic - Respiratory Respiratory exam: Present: clear to auscultation bilaterally - Cardiovascular Cardiovascular exam: Present: regular rate and rhythm - GI/Abdominal GI/Abdominal exam: Present: normal bowel sounds, soft - Neurological Exam Neurological exam: Present: alert, oriented X3 Discharge Results Labs on day of discharge: Labs from last 24 hours 10/31/16 10/31/16 10/30/16 05:09 05:09 21:28 Sodium 141 Potassium 4.2 Chloride 108 H Carbon Dioxide 25 Anion Gap 12.2 BUN 5 L Creatinine 0.80 GFR Calculation 130 BUN/Creatinine Ratio 6.00 Glucose 89 Calculated Osmolality 276.3 Calcium 8.4 L Magnesium Total Bilirubin AST ALT Alkaline Phosphatase Total Creatine Kinase 63 77 CK-MB (CK-2) < 1.0 < 1.0 Troponin I < 0.015 < 0.015 Total Protein Albumin Globulin Albumin/Globulin Ratio 10/30/16 10/30/16 10/30/16 09:49 09:47 01:23 Sodium 142 Potassium 3.1 L Chloride 107 Carbon Dioxide 27 Anion Gap 11.1 BUN 5 L Creatinine 0.80 GFR Calculation 132 BUN/Creatinine Ratio 6.00 Glucose 91 Calculated Osmolality 279.1 Calcium 8.3 L Magnesium 2.3 Total Bilirubin 0.50 AST 18 ALT 32 Alkaline Phosphatase 111 Total Creatine Kinase 81 68 CK-MB (CK-2) < 1.0 < 1.0 Troponin I < 0.015 < 0.015 Total Protein 6.9 Albumin 2.9 L Globulin 4.0 H Albumin/Globulin Ratio 0.7 L DS: Provider Date of admission: 10/30/16 11:42 Primary care physician: Antony Flannery Attending physician on admission: Vince Vieira MD Consults: 10/30/16 13:39 Consult to Pastoral Services [CONS] Routine Comment: Pastoral Screen: Request [employer] Visit 10/31/16 09:38 Consult to Physician [CONS] Routine Comment: atrial fib Consulting Provider: Zee Zhou Notified: Brandyn Date Notified: 10/31/16 Time Notified: 09:43 Discharging clinician: Anibal May MD
[2016-10-31 12:08] VITALS: BP 130/88
[2016-11-01] MEDS ORDERED: ERGOCALCIFEROL 50,000 UNIT CAPSULE PO SCH (13:21)
== END 2016-10-31 12:42 | disposition home or self-care (01) ==
LOC: EDBD → EDUNIT# → N.EDINP 09:12 → N.ED 09:12 → SUATTDRO 11:42 → N.2E 13:15
PROVIDERS: ADMIT Internal Medicine Geriatric Medicine; ATTEND Internal Medicine

== ENCOUNTER 2018-03-25 08:39 | Inpatient (IN) ==
[2018-03-25 09:14] LABS: Basophils # 0.1 10*3/uL (0.0-0.2); Basophils % 0.5 % (0.0-0.8); Eosinophils # 0.3 10*3/uL (0.0-0.87); Eosinophils % 2.6 % (0.00-10.9); Hematocrit 36.3 VOL% (42.0-52.0); Hemoglobin 11.3 GM/DL (14.0-18.0); Immature Granulocytes % 0.5 %; Immature Granulocytes Absolute 0.05 #; Lymphocytes % 30.4 % (21.2-54.2); Mean Corpuscular HGB Conc 31.1 GM/DL (32-36); Mean Corpuscular Hemoglobin 27 PG (27-34); Mean Corpuscular Volume 85.4 FL (87-102); Mean Platelet Volume 9.5 FL (9.6-12.0); Monocytes % 9.6 % (1.7-12.7); Neutrophils # 5.6 10*3/uL (1.4-7.4); Neutrophils % 56.4 % (38.7-73.9); Platelet Count 356 T/CUMM (130-400); Red Blood Count 4.25 MC/CUMM (3.8-5.5); Red Cell Distribution Width 14.6 % (9.3-17.3); White Blood Count 9.9 T/CUMM (4-12)
[2018-03-25 09:19] LABS: INR 0.9; PT Patient Result 9.9 SECS
[2018-03-25 09:36] LABS: Alanine Aminotransferase 19 U/L (16-61); Albumin 2.9 G/DL (3.4-5.0); Alkaline Phosphatase 149 U/L (45-117); Aspartate Amino Transferase 14 U/L (0-37); Bilirubin,Total < 0.39 MG/DL (0.2-1.0); Blood Urea Nitrogen 7 MG/DL (7-18); Calcium 8.4 MG/DL (8.5-10.1); Glucose 87 MG/DL (74-106); Osmolality,Calculated 277.3 MOS/KG (273-304); Potassium 3.6 MMOL/L (3.5-5.1); Sodium 141 MMOL/L (136-145); Total Protein 7.4 G/DL (6.4-8.3)
[2018-03-25] MEDS ORDERED: ENOXAPARIN 100 MG/ML SYRINGE SUBCUT STA (09:43)
[2018-03-25] MEDS ORDERED: DILTIAZEM 50 MG/10 ML VIAL IV STA (09:43)
[2018-03-25] MEDS: dilTIAZem Drip 125 MG/125 ML PREMIX IV SCH (10:06)
[2018-03-25] MEDS ORDERED: MAGNESIUM SULF RIDER 4 GM in PREMIX 1 EACH IV PRN (10:12)
[2018-03-25] MEDS ORDERED: MAGNESIUM SULF RIDER 2 GM in PREMIX 1 EACH IV PRN (10:12)
[2018-03-25] MEDS ORDERED: MORPHINE 4 MG/1 ML VIAL ONE (10:17)
[2018-03-25] MEDS ORDERED: MORPHINE 4 MG/1 ML VIAL IV STA (10:20)
[2018-03-25] MEDS ORDERED: POTASSIUM CHLORIDE 20 MEQ TABLET PO ONE (14:42)
[2018-03-25] MEDS: ASCORBIC ACID 500 MG TABLET PO SCH ×2 (14:52→21:59)
[2018-03-25] MEDS: AZITHROMYCIN 250 MG TABLET PO SCH (14:53)
[2018-03-25] MEDS: DRONEDARONE 400 MG TABLET PO SCH (17:19)
[2018-03-25] MEDS: PREGABALIN 25 MG CAPSULE PO SCH (21:58)
[2018-03-25] MEDS: metroNIDAZOLE 500 MG TABLET PO SCH (21:58)
[2018-03-25] MEDS: APIXABAN 5 MG TABLET PO SCH (21:59)
[2018-03-25] MEDS: VENLAFAXINE 37.5 MG TABLET PO SCH (22:45)
[2018-03-26] MEDS: SODIUM CHLORIDE 0.9% 1,000 ML IV SCH (04:00)
[2018-03-26] MEDS: APIXABAN 5 MG TABLET PO SCH ×2 (08:57→22:56)
[2018-03-26] MEDS: metroNIDAZOLE 500 MG TABLET PO SCH ×2 (08:57→22:56)
[2018-03-26] MEDS: DRONEDARONE 400 MG TABLET PO SCH ×2 (08:57→17:02)
[2018-03-26] MEDS: AZITHROMYCIN 250 MG TABLET PO SCH (08:57)
[2018-03-26] MEDS: DILTIAZEM CD 120 MG CAPSULE PO SCH (08:57)
[2018-03-26] MEDS: VENLAFAXINE 37.5 MG TABLET PO SCH ×2 (08:58→23:00)
[2018-03-26] MEDS: ASCORBIC ACID 500 MG TABLET PO SCH ×2 (08:58→22:56)
[2018-03-26] MEDS: PREGABALIN 25 MG CAPSULE PO SCH ×2 (14:09→22:56)
[2018-03-26] MEDS: ZALEPLON 5 MG CAPSULE PO PRN ×2 (22:56)
[2018-03-27] MEDS: ASCORBIC ACID 500 MG TABLET PO SCH ×2 (08:36→21:59)
[2018-03-27] MEDS: PREGABALIN 25 MG CAPSULE PO SCH ×2 (08:36→22:00)
[2018-03-27] MEDS: DRONEDARONE 400 MG TABLET PO SCH ×2 (08:38→16:58)
[2018-03-27] MEDS: AZITHROMYCIN 250 MG TABLET PO SCH (08:38)
[2018-03-27] MEDS: DILTIAZEM CD 120 MG CAPSULE PO SCH (08:38)
[2018-03-27] MEDS: APIXABAN 5 MG TABLET PO SCH ×2 (08:38→21:59)
[2018-03-27] MEDS: metroNIDAZOLE 500 MG TABLET PO SCH ×2 (08:38→22:00)
[2018-03-27] MEDS: VENLAFAXINE 37.5 MG TABLET PO SCH ×2 (08:38→21:59)
[2018-03-28 08:27] LABS: Calcium 8.4 MG/DL (8.5-10.1); Potassium 4.2 MMOL/L (3.5-5.1)
[2018-03-28] MEDS: DRONEDARONE 400 MG TABLET PO SCH ×2 (09:05→17:44)
[2018-03-28] MEDS: DILTIAZEM CD 120 MG CAPSULE PO SCH (09:12)
[2018-03-28] MEDS: PREGABALIN 25 MG CAPSULE PO SCH ×2 (09:12→22:52)
[2018-03-28] MEDS: APIXABAN 5 MG TABLET PO SCH ×2 (09:12→22:52)
[2018-03-28] MEDS ORDERED: PROPOFOL 200 MG/20 ML VIAL IV ONE (14:23)
[2018-03-28] MEDS: AZITHROMYCIN 250 MG TABLET PO SCH (17:43)
[2018-03-28] MEDS: VENLAFAXINE 37.5 MG TABLET PO SCH ×2 (17:43→22:52)
[2018-03-28] MEDS: ASCORBIC ACID 500 MG TABLET PO SCH ×2 (17:44→22:52)
[2018-03-28] MEDS: metroNIDAZOLE 500 MG TABLET PO SCH ×2 (17:44→22:52)
[2018-03-29] MEDS: dilTIAZem Drip 125 MG/125 ML PREMIX IV SCH (07:33)
[2018-03-29] MEDS: SODIUM CHLORIDE 0.9% 1,000 ML IV SCH ×2 (07:33→07:34)
[2018-03-29] MEDS: AZITHROMYCIN 250 MG TABLET PO SCH (08:48)
[2018-03-29] MEDS: ASCORBIC ACID 500 MG TABLET PO SCH (08:49)
[2018-03-29] MEDS: metroNIDAZOLE 500 MG TABLET PO SCH (08:49)
[2018-03-29] MEDS: VENLAFAXINE 37.5 MG TABLET PO SCH (08:49)
[2018-03-29] MEDS: DRONEDARONE 400 MG TABLET PO SCH (08:49)
[2018-03-29] MEDS: APIXABAN 5 MG TABLET PO SCH (08:49)
[2018-03-29] MEDS: DILTIAZEM CD 120 MG CAPSULE PO SCH (08:49)
[2018-03-29] MEDS: PREGABALIN 25 MG CAPSULE PO SCH (08:49)
[2018-03-29] MEDS ORDERED: guaiFENesin/DM ER 600-30 MG TABLET PO PRN (10:50)
[2018-03-29] MEDS ORDERED: PROMETHAZINE 25 MG TABLET PO PRN (10:50)
[2018-03-29 12:46] VITALS: BP 108/72
[2018-03-29] MEDS ORDERED: ALBUTEROL 2.5 MG/3 ML NEB RESP TX SCH (19:00)
[2018-03-29] MEDS ORDERED: PANTOPRAZOLE 40 MG TABLET PO SCH (21:00)
[2018-03-29] MEDS ORDERED: FLUTICASONE/SALMETEROL 250-50 DISKUS 14 DOSE INH SCH (21:00)
[2018-03-29] MEDS ORDERED: ROSUVASTATIN 10 MG TABLET PO SCH (21:00)
[2018-03-29] MEDS ORDERED: DOCUSATE SODIUM 100 MG CAPSULE PO SCH (21:00)
[2018-03-30] MEDS ORDERED: FLUTICASONE 50 MCG NASAL SPRAY 16 GM BOTTLE BOTH NARES SCH (09:00)
[2018-03-30] MEDS ORDERED: CALCIUM (CITRATE)/VITAMIN D 200 MG-125 UNIT TABLET PO SCH (09:00)
[2018-03-30] MEDS ORDERED: FEXOFENADINE 180 MG TABLET PO SCH (09:00)
[2018-03-30] MEDS ORDERED: ASPIRIN EC 81 MG TABLET PO SCH (09:00)
== END 2018-03-29 16:05 | disposition home or self-care (01) | DRG 310 ==
LOC: N.EDINP 08:39 → N.ED 08:39 → INTOOBSV 10:12 → N.EDINP 11:22 → N.TELES 11:50
PROVIDERS: ADMIT Internal Medicine Cardiovascular Disease; ATTEND Internal Medicine Cardiovascular Disease

== ENCOUNTER 2018-04-20 15:04 | Observation (INO) ==
[2018-04-20 15:46] LABS: Basophils % 0.3 % (0.0-0.8); Eosinophils # 0.2 10*3/uL (0.0-0.87); Eosinophils % 2.3 % (0.00-10.9); Hematocrit 36.9 VOL% (42.0-52.0); Hemoglobin 11.7 GM/DL (14.0-18.0); Immature Granulocytes % 0.3 %; Immature Granulocytes Absolute 0.02 #; Lymphocytes # 1.6 10*3/uL (1.4-4.0); Lymphocytes % 23.9 % (21.2-54.2); Mean Corpuscular HGB Conc 31.7 GM/DL (32-36); Mean Corpuscular Hemoglobin 27 PG (27-34); Mean Corpuscular Volume 85.2 FL (87-102); Mean Platelet Volume 9.2 FL (9.6-12.0); Monocytes # 0.7 10*3/uL (0.11-0.8); Monocytes % 10.9 % (1.7-12.7); Neutrophils # 4.1 10*3/uL (1.4-7.4); Neutrophils % 62.3 % (38.7-73.9); Platelet Count 383 T/CUMM (130-400); Red Blood Count 4.33 MC/CUMM (3.8-5.5); Red Cell Distribution Width 15.1 % (9.3-17.3); White Blood Count 6.6 T/CUMM (4-12)
[2018-04-20 16:20] LABS: Alanine Aminotransferase 21 U/L (16-61); Albumin 3.1 G/DL (3.4-5.0); Alkaline Phosphatase 113 U/L (45-117); Aspartate Amino Transferase 11 U/L (0-37); Bilirubin,Total < 0.39 MG/DL (0.2-1.0); Blood Urea Nitrogen 10 MG/DL (7-18); Calcium 8.3 MG/DL (8.5-10.1); Glucose 122 MG/DL (74-106); Osmolality,Calculated 274.7 MOS/KG (273-304); Potassium 3.7 MMOL/L (3.5-5.1); Sodium 138 MMOL/L (136-145); Total Protein 7.9 G/DL (6.4-8.3); Troponin I < 0.015 NG/ML (0.00-0.045)
[2018-04-20] MEDS ORDERED: ALUM/MAG/SIMETH/LIDO VISC 1:1 30 ML BOTTLE PO STA (16:29)
[2018-04-20] MEDS ORDERED: ONDANSETRON 4 MG/2 ML VIAL IV PRN (17:17)
[2018-04-20] MEDS: APIXABAN 5 MG TABLET PO SCH (20:11)
[2018-04-20] MEDS: PANTOPRAZOLE 40 MG TABLET PO SCH (20:11)
[2018-04-20] MEDS: SODIUM CHLORIDE 0.9% 1,000 ML IV SCH (20:12)
[2018-04-20] MEDS ORDERED: ROSUVASTATIN 10 MG TABLET PO SCH (21:00)
[2018-04-20] MEDS ORDERED: DRONEDARONE 400 MG TABLET PO SCH (21:01)
[2018-04-20] MEDS: DRONEDARONE 400 MG TABLET PO SCH (21:27)
[2018-04-21] MEDS ORDERED: ZALEPLON 5 MG CAPSULE PO PRN (01:32)
[2018-04-21 04:23] LABS: Basophils % 0.5 % (0.0-0.8); Eosinophils # 0.2 10*3/uL (0.0-0.87); Hematocrit 33.3 VOL% (42.0-52.0); Hemoglobin 10.5 GM/DL (14.0-18.0); Immature Granulocytes % 0.3 %; Immature Granulocytes Absolute 0.02 #; Lymphocytes # 2.3 10*3/uL (1.4-4.0); Lymphocytes % 35.2 % (21.2-54.2); Mean Corpuscular HGB Conc 31.5 GM/DL (32-36); Mean Corpuscular Hemoglobin 27 PG (27-34); Mean Corpuscular Volume 86.3 FL (87-102); Mean Platelet Volume 9.5 FL (9.6-12.0); Monocytes # 0.8 10*3/uL (0.11-0.8); Monocytes % 11.4 % (1.7-12.7); Neutrophils # 3.3 10*3/uL (1.4-7.4); Neutrophils % 49.6 % (38.7-73.9); Platelet Count 349 T/CUMM (130-400); Red Blood Count 3.86 MC/CUMM (3.8-5.5); Red Cell Distribution Width 15.3 % (9.3-17.3); White Blood Count 6.7 T/CUMM (4-12)
[2018-04-21] MEDS: SODIUM CHLORIDE 0.9% 1,000 ML IV SCH ×2 (04:31→12:25)
[2018-04-21 04:55] LABS: Osmolality,Calculated 274.5 MOS/KG (273-304); Potassium 4.2 MMOL/L (3.5-5.1); Thyroid Stimulating Hormone 1.68 uIU/ml (0.358-3.74)
[2018-04-21] MEDS ORDERED: DILTIAZEM CD 120 MG CAPSULE PO SCH (09:00)
[2018-04-21] MEDS ORDERED: CETIRIZINE 10 MG TABLET PO SCH (09:00)
[2018-04-21] MEDS: DRONEDARONE 400 MG TABLET PO SCH (09:04)
[2018-04-21] MEDS: APIXABAN 5 MG TABLET PO SCH (09:05)
[2018-04-21] MEDS: PANTOPRAZOLE 40 MG TABLET PO SCH (09:05)
[2018-04-21 11:01] LABS: % Iron Saturation 13.1 % (18-50)
[2018-04-21] MEDS ORDERED: SUCRALFATE 1 GM/10 ML UDCUP PO SCH (11:30)
[2018-04-21 12:08] VITALS: BP 112/70
== END 2018-04-21 14:35 | disposition home or self-care (01) ==
LOC: N.EDINP 15:04 → N.ED 15:04 → N.EDINP 18:23 → N.TELES 19:05
PROVIDERS: ADMIT Internal Medicine; ATTEND Internal Medicine

== ENCOUNTER 2019-02-28 19:20 | Observation (INO) ==
[2019-02-28] MEDS ORDERED: ASPIRIN CHEW 81 MG TABLET PO STA (21:04)
[2019-02-28] MEDS ORDERED: MORPHINE 4 MG/1 ML VIAL IV STA ×2 (21:17→23:06)
[2019-02-28] MEDS ORDERED: METOPROLOL TARTRATE 5 MG/5 ML VIAL IV STA (21:17)
[2019-02-28] MEDS ORDERED: ONDANSETRON 4 MG/2 ML VIAL IM STA (21:18)
[2019-02-28 22:06] LABS: Basophils % 0.3 % (0.0-0.8); Eosinophils # 0.3 10*3/uL (0.0-0.87); Hematocrit 37.8 VOL% (42.0-52.0); Hemoglobin 11.9 GM/DL (14.0-18.0); Immature Granulocytes % 0.2 %; Immature Granulocytes Absolute 0.02 #; Lymphocytes # 2.5 10*3/uL (1.4-4.0); Lymphocytes % 25.2 % (21.2-54.2); Mean Corpuscular HGB Conc 31.5 GM/DL (32-36); Mean Corpuscular Volume 85.1 FL (87-102); Mean Platelet Volume 9.4 FL (9.6-12.0); Monocytes % 7.7 % (1.7-12.7); Neutrophils % 63.6 % (38.7-73.9); Platelet Count 441 T/CUMM (130-400); Red Blood Count 4.44 MC/CUMM (3.8-5.5); Red Cell Distribution Width 14.7 % (9.3-17.3); White Blood Count 9.8 T/CUMM (4-12)
[2019-02-28 22:29] LABS: PT Patient Result 10.8 SECS (9.6-12.2); Partial Thromboplastin Time 27.4 SECS (20.8-36.0)
[2019-02-28 22:33] LABS: Alanine Aminotransferase 29 U/L (16-61); Albumin 2.9 G/DL (3.4-5.0); Alkaline Phosphatase 115 U/L (45-117); Aspartate Amino Transferase 21 U/L (0-37); Bilirubin,Total < 0.39 MG/DL (0.2-1.0); Blood Urea Nitrogen 7 MG/DL (7-18); Calcium 8.7 MG/DL (8.5-10.1); Estimated Glom Filtration Rate 113 ML/MIN; Glucose 106 MG/DL (74-106); Osmolality,Calculated 276.4 MOS/KG (273-304); Total Protein 8.2 G/DL (6.4-8.3); Troponin I < 0.015 NG/ML (0.00-0.045)
[2019-02-28] MEDS ORDERED: NITROGLYCERIN SL 0.4 MG TABLET SL STA (23:06)
[2019-02-28] MEDS ORDERED: DEXTROSE 10% 250 ML BAG IV PRN (23:34)
[2019-02-28] MEDS ORDERED: POTASSIUM CHLORIDE 20 MEQ TABLET PO PRN (23:34)
[2019-02-28] MEDS ORDERED: GLUCAGON 1 MG VIAL IM PRN (23:34)
[2019-03-01] MEDS ORDERED: INFLUENZA VIRUS VACCINE 0.5 ML SYRINGE IM ONE (01:09)
[2019-03-01 02:05] LABS: Barbiturates Screen,Urine Negative (Negative); Benzodiazepines Screen,Urine Negative (Negative); Cannabinoid Screen,Urine Negative (Negative); Opiate Screen,Urine Positive (Negative); Phencyclidine Screen,Urine Negative (Negative)
[2019-03-01] MEDS ORDERED: ENOXAPARIN 100 MG/ML SYRINGE SUBCUT SCH (03:30)
[2019-03-01] MEDS: MORPHINE 4 MG/1 ML VIAL IV PRN (03:57)
[2019-03-01 05:53] LABS: Risk Ratio 4.03; VLDL CHOLESTEROL 24.4 MG/DL
[2019-03-01 05:54] LABS: Troponin I < 0.015 NG/ML (0.00-0.045)
[2019-03-01] MEDS: ASPIRIN EC 325 MG TABLET PO SCH (08:28)
[2019-03-01] MEDS ORDERED: METOPROLOL TARTRATE 25 MG TABLET PO SCH (09:00)
[2019-03-01] MEDS ORDERED: guaiFENesin/DM ER 600-30 MG TABLET PO PRN (09:17)
[2019-03-01] MEDS ORDERED: DILTIAZEM CD 120 MG CAPSULE PO SCH (09:30)
[2019-03-01] MEDS: PANTOPRAZOLE 40 MG TABLET PO SCH ×2 (10:36→20:29)
[2019-03-01] MEDS: CETIRIZINE 10 MG TABLET PO SCH (10:36)
[2019-03-01] MEDS: EZETIMIBE 10 MG TABLET PO SCH (10:36)
[2019-03-01] MEDS: MONTELUKAST 10 MG TABLET PO SCH (10:37)
[2019-03-01] MEDS: ALBUTEROL 2.5 MG/3 ML NEB RESP TX SCH ×2 (12:10→19:47)
[2019-03-01] MEDS: BUDESONIDE/FORMOTEROL 160-4.5 INHALER 6 GM INH SCH ×2 (15:03→20:28)
[2019-03-01] MEDS: FLUTICASONE 50 MCG NASAL SPRAY 16 GM BOTTLE BOTH NARES SCH (15:04)
[2019-03-01] MEDS: DRONEDARONE 400 MG TABLET PO SCH (17:31)
[2019-03-01] MEDS: APIXABAN 5 MG TABLET PO SCH (20:25)
[2019-03-01] MEDS: ROSUVASTATIN 10 MG TABLET PO SCH (20:25)
[2019-03-01] MEDS ORDERED: MELATONIN 3 MG TABLET PO ONE (23:08)
[2019-03-02] MEDS: ALBUTEROL 2.5 MG/3 ML NEB RESP TX SCH ×2 (07:36→19:29)
[2019-03-02] MEDS: DILTIAZEM CD 120 MG CAPSULE PO SCH ×2 (09:13→20:56)
[2019-03-02] MEDS: EZETIMIBE 10 MG TABLET PO SCH (09:13)
[2019-03-02] MEDS: PANTOPRAZOLE 40 MG TABLET PO SCH ×2 (09:14→20:57)
[2019-03-02] MEDS: APIXABAN 5 MG TABLET PO SCH ×2 (09:14→20:56)
[2019-03-02] MEDS: ASPIRIN EC 325 MG TABLET PO SCH (09:14)
[2019-03-02] MEDS: DRONEDARONE 400 MG TABLET PO SCH ×2 (09:14→18:19)
[2019-03-02] MEDS: MONTELUKAST 10 MG TABLET PO SCH (09:14)
[2019-03-02] MEDS: CETIRIZINE 10 MG TABLET PO SCH (09:14)
[2019-03-02] MEDS: BUDESONIDE/FORMOTEROL 160-4.5 INHALER 6 GM INH SCH ×2 (09:15→21:18)
[2019-03-02] MEDS: FLUTICASONE 50 MCG NASAL SPRAY 16 GM BOTTLE BOTH NARES SCH (10:10)
[2019-03-02] MEDS: MORPHINE 4 MG/1 ML VIAL IV PRN (15:25)
[2019-03-02] MEDS ORDERED: ALPRAZolam 0.5 MG TABLET PO PRN (20:48)
[2019-03-02] MEDS: ROSUVASTATIN 10 MG TABLET PO SCH (20:57)
[2019-03-02] MEDS ORDERED: ENOXAPARIN 40 MG/0.4 ML SYRINGE SUBCUT SCH (21:00)
[2019-03-03 05:31] LABS: Basophils % 0.2 % (0.0-0.8); Eosinophils # 0.2 10*3/uL (0.0-0.87); Eosinophils % 2.1 % (0.00-10.9); Hematocrit 36.9 VOL% (42.0-52.0); Hemoglobin 11.8 GM/DL (14.0-18.0); Immature Granulocytes % 0.3 %; Immature Granulocytes Absolute 0.03 #; Lymphocytes # 2.7 10*3/uL (1.4-4.0); Lymphocytes % 26.4 % (21.2-54.2); Mean Corpuscular Volume 84.6 FL (87-102); Mean Platelet Volume 9.6 FL (9.6-12.0); Monocytes % 7.8 % (1.7-12.7); Neutrophils % 63.2 % (38.7-73.9); Platelet Count 429 T/CUMM (130-400); Red Blood Count 4.36 MC/CUMM (3.8-5.5); Red Cell Distribution Width 14.9 % (9.3-17.3); White Blood Count 10.3 T/CUMM (4-12)
[2019-03-03 05:54] LABS: Calcium 8.5 MG/DL (8.5-10.1)
[2019-03-03] MEDS: ALBUTEROL 2.5 MG/3 ML NEB RESP TX SCH (07:25)
[2019-03-03] MEDS: DILTIAZEM CD 120 MG CAPSULE PO SCH (08:37)
[2019-03-03] MEDS: APIXABAN 5 MG TABLET PO SCH (08:37)
[2019-03-03] MEDS: PANTOPRAZOLE 40 MG TABLET PO SCH (08:37)
[2019-03-03] MEDS: DRONEDARONE 400 MG TABLET PO SCH (08:37)
[2019-03-03] MEDS: MONTELUKAST 10 MG TABLET PO SCH (08:37)
[2019-03-03] MEDS: CETIRIZINE 10 MG TABLET PO SCH (08:37)
[2019-03-03] MEDS: ASPIRIN EC 325 MG TABLET PO SCH (08:37)
[2019-03-03] MEDS: EZETIMIBE 10 MG TABLET PO SCH (08:38)
[2019-03-03] MEDS: FLUTICASONE 50 MCG NASAL SPRAY 16 GM BOTTLE BOTH NARES SCH (08:39)
[2019-03-03] MEDS: BUDESONIDE/FORMOTEROL 160-4.5 INHALER 6 GM INH SCH (08:39)
[2019-03-03] MEDS ORDERED: MEPERIDINE 25 MG/1 ML VIAL ONE (12:05)
[2019-03-03] MEDS ORDERED: MIDAZOLAM 10 MG/2 ML VIAL ONE (12:05)
[2019-03-03 15:32] VITALS: BP 102/73
== END 2019-03-03 16:49 | disposition home or self-care (01) ==
LOC: N.EDINP 19:20 → N.ED 19:20 → SUATTDRO 23:34 → N.2W 23:55
PROVIDERS: ADMIT Internal Medicine; ATTEND Internal Medicine Cardiovascular Disease

== ENCOUNTER 2019-06-17 23:24 | Inpatient (IN) ==
[2019-06-17] MEDS ORDERED: METOPROLOL TARTRATE 5 MG/5 ML VIAL IV STA (23:49)
[2019-06-18 00:20] LABS: Basophils % 0.3 % (0.0-0.8); Eosinophils # 0.2 10*3/uL (0.0-0.87); Eosinophils % 1.8 % (0.00-10.9); Hemoglobin 12.9 GM/DL (14.0-18.0); Immature Granulocytes % 0.4 %; Immature Granulocytes Absolute 0.04 #; Lymphocytes # 3.4 10*3/uL (1.4-4.0); Lymphocytes % 29.4 % (21.2-54.2); Mean Corpuscular HGB Conc 32.3 GM/DL (32-36); Mean Corpuscular Volume 83.2 FL (87-102); Mean Platelet Volume 9.3 FL (9.6-12.0); Monocytes % 9.4 % (1.7-12.7); Neutrophils % 58.7 % (38.7-73.9); Platelet Count 468 T/CUMM (130-400); Red Blood Count 4.81 MC/CUMM (3.8-5.5); Red Cell Distribution Width 15.6 % (9.3-17.3); White Blood Count 11.4 T/CUMM (4-12)
[2019-06-18 00:41] LABS: Albumin 2.9 G/DL (3.4-5.0); Bilirubin,Total 0.5 MG/DL (0.2-1.0); Calcium 8.6 MG/DL (8.5-10.1); Osmolality,Calculated 272.7 MOS/KG (273-304); Total Protein 7.9 G/DL (6.4-8.3)
[2019-06-18] MEDS ORDERED: MORPHINE 4 MG/1 ML VIAL IV STA (01:20)
[2019-06-18] MEDS ORDERED: ONDANSETRON 4 MG/2 ML VIAL IV ONE (01:20)
[2019-06-18 01:27] LABS: PT Patient Result 11.1 SECS (9.8-11.9)
[2019-06-18] MEDS ORDERED: ONDANSETRON 4 MG/2 ML VIAL IV PRN (04:32)
[2019-06-18] MEDS ORDERED: ACETAMINOPHEN 325 MG TABLET PO PRN (04:32)
[2019-06-18] MEDS ORDERED: NITROGLYCERIN SL 0.4 MG TABLET SL PRN (04:32)
[2019-06-18] MEDS ORDERED: DOCUSATE SODIUM 100 MG CAPSULE PO PRN (04:32)
[2019-06-18] MEDS: MORPHINE 4 MG/1 ML VIAL IV PRN (04:58)
[2019-06-18 05:29] LABS: Basophils % 0.3 % (0.0-0.8); Eosinophils # 0.2 10*3/uL (0.0-0.87); Eosinophils % 1.7 % (0.00-10.9); Hematocrit 39.8 VOL% (42.0-52.0); Hemoglobin 12.5 GM/DL (14.0-18.0); Immature Granulocytes % 0.3 %; Immature Granulocytes Absolute 0.03 #; Lymphocytes # 2.8 10*3/uL (1.4-4.0); Lymphocytes % 30.3 % (21.2-54.2); Mean Corpuscular HGB Conc 31.4 GM/DL (32-36); Mean Corpuscular Volume 86.5 FL (87-102); Mean Platelet Volume 9.2 FL (9.6-12.0); Monocytes % 9.8 % (1.7-12.7); Neutrophils % 57.6 % (38.7-73.9); Platelet Count 452 T/CUMM (130-400); Red Cell Distribution Width 15.7 % (9.3-17.3); White Blood Count 9.4 T/CUMM (4-12)
[2019-06-18 05:58] LABS: % Iron Saturation 7.9 % (18-50); Ferritin 51.7 ng/ml (26-388); Thyroid Stimulating Hormone 2.42 uIU/ml (0.358-3.74)
[2019-06-18 06:01] LABS: Folate 3.9 NG/ML (5.4-24.0); Vitamin B12 801 PG/ML (211-911)
[2019-06-18 06:40] LABS: Sedimentation Rate-Westergren 50 MM/HR (0-20)
[2019-06-18] MEDS ORDERED: ALBUTEROL 2.5 MG/3 ML NEB RESP TX SCH (07:00)
[2019-06-18] MEDS: DILTIAZEM CD 240 MG CAPSULE PO SCH (09:13)
[2019-06-18] MEDS: CETIRIZINE 10 MG TABLET PO SCH (09:14)
[2019-06-18] MEDS: ASPIRIN EC 81 MG TABLET PO SCH (09:14)
[2019-06-18] MEDS: PANTOPRAZOLE 40 MG TABLET PO SCH ×2 (09:14→21:05)
[2019-06-18] MEDS: EZETIMIBE 10 MG TABLET PO SCH (09:14)
[2019-06-18] MEDS: MONTELUKAST 10 MG TABLET PO SCH (09:15)
[2019-06-18] MEDS: DRONEDARONE 400 MG TABLET PO SCH ×2 (09:15→17:38)
[2019-06-18] MEDS: ENOXAPARIN 40 MG/0.4 ML SYRINGE SUBCUT SCH (09:16)
[2019-06-18 11:14] LABS: HIV Antigen/Antibody Result Nonreactive (Nonreactive); Hepatitis B Surface Ag Quant < 0.10 Index; Hepatitis B Surface Ag Result Negative (Negative); Hepatitis C Virus Ab Quant 0.12 Index; Hepatitis C Virus Ab Result Negative (Negative)
[2019-06-18] MEDS: BUDESONIDE/FORMOTEROL 160-4.5 INHALER 6 GM INH SCH ×2 (12:00→21:07)
[2019-06-18] MEDS: FLUTICASONE 50 MCG NASAL SPRAY 16 GM BOTTLE BOTH NARES SCH (12:00)
[2019-06-18] MEDS: FERROUS SULFATE 325 MG TABLET PO SCH ×2 (13:32→21:05)
[2019-06-18] MEDS: FOLIC ACID 1 MG TABLET PO SCH (13:33)
[2019-06-18] MEDS: LEVALBUTEROL 0.63 MG/3 ML NEB RESP TX SCH ×2 (14:06→19:21)
[2019-06-18] MEDS: ROSUVASTATIN 10 MG TABLET PO SCH (21:05)
[2019-06-18] MEDS: ZALEPLON 5 MG CAPSULE PO PRN (23:53)
[2019-06-19] MEDS: LEVALBUTEROL 0.63 MG/3 ML NEB RESP TX SCH ×4 (01:11→19:59)
[2019-06-19] MEDS: ZALEPLON 5 MG CAPSULE PO PRN ×2 (01:53→23:44)
[2019-06-19 06:22] LABS: Basophils % 0.3 % (0.0-0.8); Eosinophils # 0.1 10*3/uL (0.0-0.87); Eosinophils % 1.4 % (0.00-10.9); Hematocrit 36.3 VOL% (42.0-52.0); Hemoglobin 11.6 GM/DL (14.0-18.0); Immature Granulocytes % 0.3 %; Immature Granulocytes Absolute 0.03 #; Lymphocytes # 2.7 10*3/uL (1.4-4.0); Lymphocytes % 28.8 % (21.2-54.2); Mean Corpuscular Volume 84.6 FL (87-102); Mean Platelet Volume 9.4 FL (9.6-12.0); Monocytes % 8.8 % (1.7-12.7); Neutrophils % 60.4 % (38.7-73.9); Platelet Count 389 T/CUMM (130-400); Red Blood Count 4.29 MC/CUMM (3.8-5.5); Red Cell Distribution Width 15.8 % (9.3-17.3); White Blood Count 9.4 T/CUMM (4-12)
[2019-06-19 06:49] LABS: Calcium 8.5 MG/DL (8.5-10.1); Osmolality,Calculated 270.8 MOS/KG (273-304)
[2019-06-19] MEDS: FERROUS SULFATE 325 MG TABLET PO SCH ×2 (09:10→21:11)
[2019-06-19] MEDS: MONTELUKAST 10 MG TABLET PO SCH (09:10)
[2019-06-19] MEDS: FOLIC ACID 1 MG TABLET PO SCH (09:10)
[2019-06-19] MEDS: CETIRIZINE 10 MG TABLET PO SCH (09:10)
[2019-06-19] MEDS: DILTIAZEM CD 240 MG CAPSULE PO SCH (09:10)
[2019-06-19] MEDS: EZETIMIBE 10 MG TABLET PO SCH (09:10)
[2019-06-19] MEDS: PANTOPRAZOLE 40 MG TABLET PO SCH ×2 (09:10→21:14)
[2019-06-19] MEDS: DRONEDARONE 400 MG TABLET PO SCH (09:11)
[2019-06-19] MEDS: ENOXAPARIN 40 MG/0.4 ML SYRINGE SUBCUT SCH (09:11)
[2019-06-19] MEDS: ASPIRIN EC 81 MG TABLET PO SCH (09:11)
[2019-06-19] MEDS: FLUTICASONE 50 MCG NASAL SPRAY 16 GM BOTTLE BOTH NARES SCH (09:12)
[2019-06-19] MEDS: BUDESONIDE/FORMOTEROL 160-4.5 INHALER 6 GM INH SCH ×2 (09:12→21:15)
[2019-06-19] MEDS ORDERED: MAGNESIUM SULF RIDER 2 GM in PREMIX 1 EACH IV PRN (10:26)
[2019-06-19] MEDS ORDERED: MAGNESIUM SULF RIDER 4 GM in PREMIX 1 EACH IV PRN (10:26)
[2019-06-19] MEDS: POTASSIUM CHLORIDE 20 MEQ TABLET PO PRN ×2 (12:09→14:36)
[2019-06-19] MEDS ORDERED: SOTALOL 80 MG TABLET PO SCH (21:00)
[2019-06-19] MEDS: ROSUVASTATIN 10 MG TABLET PO SCH (21:10)
[2019-06-19] MEDS: APIXABAN 5 MG TABLET PO SCH (21:10)
[2019-06-19] MEDS: MORPHINE 4 MG/1 ML VIAL IV PRN (21:12)
[2019-06-19] MEDS: METOPROLOL SUCCINATE XL 100 MG TABLET PO SCH (21:14)
[2019-06-19] MEDS: FLECAINIDE 100 MG TABLET PO SCH (21:25)
[2019-06-20] MEDS: LEVALBUTEROL 0.63 MG/3 ML NEB RESP TX SCH ×4 (00:51→21:15)
[2019-06-20] MEDS: MORPHINE 4 MG/1 ML VIAL IV PRN ×3 (02:13→23:32)
[2019-06-20 05:30] LABS: Basophils % 0.2 % (0.0-0.8); Eosinophils # 0.1 10*3/uL (0.0-0.87); Eosinophils % 1.4 % (0.00-10.9); Hematocrit 36.6 VOL% (42.0-52.0); Hemoglobin 11.5 GM/DL (14.0-18.0); Immature Granulocytes % 0.3 %; Immature Granulocytes Absolute 0.03 #; Lymphocytes # 2.8 10*3/uL (1.4-4.0); Lymphocytes % 28.1 % (21.2-54.2); Mean Corpuscular HGB Conc 31.4 GM/DL (32-36); Mean Corpuscular Volume 86.3 FL (87-102); Mean Platelet Volume 9.5 FL (9.6-12.0); Monocytes % 8.2 % (1.7-12.7); Neutrophils % 61.8 % (38.7-73.9); Platelet Count 458 T/CUMM (130-400); Red Blood Count 4.24 MC/CUMM (3.8-5.5); Red Cell Distribution Width 15.9 % (9.3-17.3); White Blood Count 9.9 T/CUMM (4-12)
[2019-06-20 05:59] LABS: Calcium 8.3 MG/DL (8.5-10.1); Osmolality,Calculated 271.8 MOS/KG (273-304)
[2019-06-20] MEDS ORDERED: propofoL 200 MG/20 ML VIAL IV ONE (09:24)
[2019-06-20] MEDS ORDERED: LIDOCAINE 2% 5 ML VIAL ONE (09:24)
[2019-06-20] MEDS: FLUTICASONE 50 MCG NASAL SPRAY 16 GM BOTTLE BOTH NARES SCH (10:26)
[2019-06-20] MEDS: FERROUS SULFATE 325 MG TABLET PO SCH ×2 (10:27→20:16)
[2019-06-20] MEDS: MONTELUKAST 10 MG TABLET PO SCH (10:27)
[2019-06-20] MEDS: METOPROLOL SUCCINATE XL 100 MG TABLET PO SCH ×2 (10:27→20:16)
[2019-06-20] MEDS: PANTOPRAZOLE 40 MG TABLET PO SCH ×2 (10:27→20:16)
[2019-06-20] MEDS: FOLIC ACID 1 MG TABLET PO SCH (10:27)
[2019-06-20] MEDS: APIXABAN 5 MG TABLET PO SCH ×2 (10:27→20:16)
[2019-06-20] MEDS: EZETIMIBE 10 MG TABLET PO SCH (10:27)
[2019-06-20] MEDS: FLECAINIDE 100 MG TABLET PO SCH ×2 (10:27→20:20)
[2019-06-20] MEDS: CETIRIZINE 10 MG TABLET PO SCH (10:28)
[2019-06-20] MEDS: DILTIAZEM CD 120 MG CAPSULE PO SCH (10:28)
[2019-06-20] MEDS: ASPIRIN EC 81 MG TABLET PO SCH (10:28)
[2019-06-20] MEDS: BUDESONIDE/FORMOTEROL 160-4.5 INHALER 6 GM INH SCH ×2 (10:32→20:17)
[2019-06-20] MEDS ORDERED: POLYETHYLENE GLYCOL POWDER 17 GM PACK PO PRN (15:05)
[2019-06-20] MEDS: ROSUVASTATIN 10 MG TABLET PO SCH (20:15)
[2019-06-20] MEDS: ZALEPLON 5 MG CAPSULE PO PRN (20:39)
[2019-06-21] MEDS: LEVALBUTEROL 0.63 MG/3 ML NEB RESP TX SCH ×2 (01:01→07:07)
[2019-06-21] MEDS: MORPHINE 4 MG/1 ML VIAL IV PRN (02:32)
[2019-06-21 06:32] LABS: Basophils % 0.2 % (0.0-0.8); Eosinophils # 0.1 10*3/uL (0.0-0.87); Eosinophils % 1.4 % (0.00-10.9); Hematocrit 34.1 VOL% (42.0-52.0); Hemoglobin 10.7 GM/DL (14.0-18.0); Immature Granulocytes % 0.4 %; Immature Granulocytes Absolute 0.03 #; Lymphocytes # 2.6 10*3/uL (1.4-4.0); Lymphocytes % 30.6 % (21.2-54.2); Mean Corpuscular HGB Conc 31.4 GM/DL (32-36); Mean Corpuscular Volume 87.4 FL (87-102); Mean Platelet Volume 9.5 FL (9.6-12.0); Monocytes % 9.4 % (1.7-12.7); Platelet Count 406 T/CUMM (130-400); Red Cell Distribution Width 15.9 % (9.3-17.3); White Blood Count 8.4 T/CUMM (4-12)
[2019-06-21 07:12] LABS: Calcium 8.4 MG/DL (8.5-10.1); Osmolality,Calculated 272.7 MOS/KG (273-304)
[2019-06-21] MEDS: CETIRIZINE 10 MG TABLET PO SCH (08:30)
[2019-06-21] MEDS: EZETIMIBE 10 MG TABLET PO SCH (08:30)
[2019-06-21] MEDS: DILTIAZEM CD 120 MG CAPSULE PO SCH (08:30)
[2019-06-21] MEDS: MONTELUKAST 10 MG TABLET PO SCH (08:30)
[2019-06-21] MEDS: APIXABAN 5 MG TABLET PO SCH (08:30)
[2019-06-21] MEDS: FERROUS SULFATE 325 MG TABLET PO SCH (08:30)
[2019-06-21] MEDS: FOLIC ACID 1 MG TABLET PO SCH (08:31)
[2019-06-21] MEDS: METOPROLOL SUCCINATE XL 100 MG TABLET PO SCH (08:31)
[2019-06-21] MEDS: PANTOPRAZOLE 40 MG TABLET PO SCH (08:31)
[2019-06-21] MEDS: BUDESONIDE/FORMOTEROL 160-4.5 INHALER 6 GM INH SCH (08:32)
[2019-06-21] MEDS: FLUTICASONE 50 MCG NASAL SPRAY 16 GM BOTTLE BOTH NARES SCH (08:32)
[2019-06-21] MEDS: ASPIRIN EC 81 MG TABLET PO SCH (08:32)
[2019-06-21] MEDS: FLECAINIDE 100 MG TABLET PO SCH (09:16)
[2019-06-21 11:45] VITALS: BP 111/71
== END 2019-06-21 12:27 | disposition home or self-care (01) | DRG 310 ==
LOC: N.ED 23:24 → N.EDINP 23:24 → N.TELES 06-18 04:15
PROVIDERS: ADMIT Internal Medicine; ATTEND Internal Medicine

== ENCOUNTER 2020-04-15 03:36 | Observation (INO) ==
[2020-04-15] MEDS ORDERED: NITROGLYCERIN 2% OINT 1 INCH/GM PACK TOP STA (04:02)
[2020-04-15] MEDS ORDERED: ASPIRIN 325 MG TABLET PO STA (04:02)
[2020-04-15] MEDS ORDERED: ONDANSETRON 4 MG/2 ML VIAL IV STA (04:02)
[2020-04-15] MEDS ORDERED: MORPHINE 4 MG/1 ML VIAL IV STA (04:02)
[2020-04-15 04:04] LABS: Basophils % 0.2 % (0.0-0.8); Eosinophils # 0.2 10*3/uL (0.0-0.87); Eosinophils % 2.5 % (0.00-10.9); Hematocrit 32.7 VOL% (42.0-52.0); Hemoglobin 9.8 GM/DL (14.0-18.0); Immature Granulocytes % 0.2 %; Immature Granulocytes Absolute 0.02 #; Lymphocytes # 2.8 10*3/uL (1.4-4.0); Lymphocytes % 33.1 % (21.2-54.2); Mean Corpuscular Volume 86.3 FL (87-102); Mean Platelet Volume 9.1 FL (9.6-12.0); Platelet Count 489 T/CUMM (130-400); Red Blood Count 3.79 MC/CUMM (3.8-5.5); Red Cell Distribution Width 15.3 % (9.3-17.3); White Blood Count 8.3 T/CUMM (4-12)
[2020-04-15 04:15] LABS: Partial Thromboplastin Time 31.6 SECS (23.9-33.8)
[2020-04-15 04:30] LABS: Alanine Aminotransferase 19 U/L (16-61); Albumin 2.8 G/DL (3.4-5.0); Alkaline Phosphatase 27 U/L (45-117); Aspartate Amino Transferase 17 U/L (0-37); Bilirubin,Total < 0.39 MG/DL (0.2-1.0); Blood Urea Nitrogen 8 MG/DL (7-18); Calcium 8.1 MG/DL (8.5-10.1); Carbon Dioxide 26 MMOL/L (21-32); Estimated Glom Filtration Rate 125 ML/MIN; Glucose 88 MG/DL (74-106); Osmolality,Calculated 273.5 MOS/KG (273-304); Potassium 3.7 MMOL/L (3.5-5.1); Sodium 139 MMOL/L (136-145); Total Protein 8.1 G/DL (6.4-8.3)
[2020-04-15] MEDS ORDERED: ONDANSETRON 4 MG/2 ML VIAL IV PRN (05:07)
[2020-04-15] MEDS ORDERED: GLUCAGON 1 MG VIAL IM PRN (05:07)
[2020-04-15] MEDS ORDERED: DEXTROSE 50% 25 GM/50 ML VIAL IV PRN (05:07)
[2020-04-15] MEDS ORDERED: MORPHINE 4 MG/1 ML VIAL IV PRN (05:07)
[2020-04-15] MEDS ORDERED: KETOROLAC 30 MG/1 ML VIAL IV ONE (08:08)
[2020-04-15 08:14] LABS: Risk Ratio 4.3; VLDL CHOLESTEROL 23.6 MG/DL
[2020-04-15] MEDS ORDERED: GABAPENTIN 100 MG CAPSULE PO SCH (09:00)
[2020-04-15] MEDS ORDERED: ASPIRIN EC 81 MG TABLET PO SCH (09:00)
[2020-04-15] MEDS ORDERED: ACETAMINOPHEN 325 MG TABLET PO SCH (09:00)
[2020-04-15] MEDS ORDERED: PANTOPRAZOLE 40 MG TABLET PO SCH (09:00)
[2020-04-15] MEDS ORDERED: ENOXAPARIN 40 MG/0.4 ML SYRINGE SUBCUT SCH (09:00)
[2020-04-15] MEDS ORDERED: ASPIRIN EC 325 MG TABLET PO SCH (09:00)
[2020-04-15] MEDS ORDERED: APIXABAN 5 MG TABLET PO SCH (09:00)
[2020-04-15 12:30] VITALS: BP 144/80
[2020-04-15] MEDS ORDERED: ROSUVASTATIN 10 MG TABLET PO SCH (21:00)
== END 2020-04-15 13:25 | disposition home or self-care (01) ==
LOC: N.ED 03:36 → N.EDINP 03:36 → N.TELES 06:04
PROVIDERS: ADMIT Internal Medicine; ATTEND Internal Medicine

== ENCOUNTER 2020-10-17 00:12 | Observation (INO) ==
[2020-10-17 00:52] LABS: Basophils % 0.3 % (0.0-0.8); Eosinophils # 0.1 10*3/uL (0.0-0.87); Eosinophils % 0.9 % (0.00-10.9); Hematocrit 39.5 VOL% (42.0-52.0); Hemoglobin 12.2 GM/DL (14.0-18.0); Immature Granulocytes % 0.3 %; Immature Granulocytes Absolute 0.04 #; Lymphocytes # 2.7 10*3/uL (1.4-4.0); Lymphocytes % 22.8 % (21.2-54.2); Mean Corpuscular HGB Conc 30.9 GM/DL (32-36); Mean Corpuscular Volume 85.7 FL (87-102); Mean Platelet Volume 9.3 FL (9.6-12.0); Monocytes % 7.4 % (1.7-12.7); Neutrophils % 68.3 % (38.7-73.9); Platelet Count 473 T/CUMM (130-400); Red Blood Count 4.61 MC/CUMM (3.8-5.5); Red Cell Distribution Width 15.8 % (9.3-17.3); White Blood Count 11.7 T/CUMM (4-12)
[2020-10-17 00:58] LABS: Albumin 3.2 G/DL (3.4-5.0); Bilirubin,Total 0.5 MG/DL (0.20-1.00); Calcium 8.5 MG/DL (8.5-10.1); Potassium 3.5 MMOL/L (3.5-5.1); Total Protein 7.7 G/DL (6.4-8.2)
[2020-10-17] MEDS ORDERED: NITROGLYCERIN SL 0.4 MG TABLET SL ONE (01:39)
[2020-10-17] MEDS ORDERED: ASPIRIN 325 MG TABLET ONE (01:39)
[2020-10-17] MEDS ORDERED: SODIUM CHLORIDE 0.9% 1,000 ML IV STA (01:57)
[2020-10-17] MEDS ORDERED: ONDANSETRON 4 MG/2 ML VIAL IV STA (01:57)
[2020-10-17] MEDS ORDERED: MORPHINE 2 MG/1 ML SYRINGE IV STA (02:04)
[2020-10-17 02:30] LABS: Thyroid Stimulating Hormone 2.15 uIU/ml (0.358-3.74)
[2020-10-17] MEDS ORDERED: MORPHINE 2 MG/1 ML SYRINGE IV PRN (05:11)
[2020-10-17] MEDS ORDERED: ONDANSETRON 4 MG/2 ML VIAL IV PRN (05:11)
[2020-10-17] MEDS ORDERED: ACETAMINOPHEN 325 MG TABLET PO PRN (05:11)
[2020-10-17] MEDS ORDERED: DEXTROSE 50% 25 GM/50 ML VIAL IV PRN (05:11)
[2020-10-17] MEDS ORDERED: GLUCAGON 1 MG VIAL IM PRN (05:11)
[2020-10-17] MEDS ORDERED: DOCUSATE SODIUM 100 MG CAPSULE PO PRN (05:11)
[2020-10-17] MEDS ORDERED: POTASSIUM CHLORIDE 20 MEQ TABLET PO ONE (05:20)
[2020-10-17] MEDS ORDERED: NITROGLYCERIN SL 0.4 MG TABLET SL PRN (05:29)
[2020-10-17] MEDS: EZETIMIBE 10 MG TABLET PO SCH (09:24)
[2020-10-17] MEDS: PANTOPRAZOLE 40 MG TABLET PO SCH ×2 (09:24→20:31)
[2020-10-17] MEDS: FLECAINIDE 100 MG TABLET PO SCH ×2 (09:24→20:31)
[2020-10-17] MEDS: ASPIRIN EC 81 MG TABLET PO SCH (09:24)
[2020-10-17] MEDS: APIXABAN 5 MG TABLET PO SCH ×2 (09:25→20:31)
[2020-10-17] MEDS: CETIRIZINE 10 MG TABLET PO SCH (09:25)
[2020-10-17] MEDS: GABAPENTIN 100 MG CAPSULE PO SCH ×3 (09:25→20:30)
[2020-10-17] MEDS: DILTIAZEM CD 240 MG CAPSULE PO SCH (09:25)
[2020-10-17] MEDS: MONTELUKAST 10 MG TABLET PO SCH (09:43)
[2020-10-17] MEDS: FLUTICASONE 50 MCG NASAL SPRAY 16 GM BOTTLE BOTH NARES SCH (10:18)
[2020-10-17] MEDS: BUDESONIDE/FORMOTEROL 160-4.5 INHALER 6 GM INH SCH ×2 (10:20→20:31)
[2020-10-17] MEDS: ALBUTEROL 2.5 MG/3 ML NEB RESP TX SCH ×2 (18:16→19:28)
[2020-10-17] MEDS ORDERED: ROSUVASTATIN 10 MG TABLET PO SCH (21:00)
[2020-10-18 06:09] LABS: Basophils % 0.3 % (0.0-0.8); Eosinophils # 0.2 10*3/uL (0.0-0.87); Eosinophils % 1.8 % (0.00-10.9); Hematocrit 35.3 VOL% (42.0-52.0); Hemoglobin 11.1 GM/DL (14.0-18.0); Immature Granulocytes % 0.2 %; Immature Granulocytes Absolute 0.02 #; Lymphocytes % 31.1 % (21.2-54.2); Mean Corpuscular HGB Conc 31.4 GM/DL (32-36); Mean Corpuscular Volume 86.7 FL (87-102); Mean Platelet Volume 9.8 FL (9.6-12.0); Monocytes % 9.7 % (1.7-12.7); Neutrophils % 56.9 % (38.7-73.9); Platelet Count 384 T/CUMM (130-400); Red Blood Count 4.07 MC/CUMM (3.8-5.5); White Blood Count 9.6 T/CUMM (4-12)
[2020-10-18 06:37] LABS: Calcium 8.6 MG/DL (8.5-10.1); Potassium 3.5 MMOL/L (3.5-5.1)
[2020-10-18] MEDS: ALBUTEROL 2.5 MG/3 ML NEB RESP TX SCH (07:05)
[2020-10-18] MEDS: MONTELUKAST 10 MG TABLET PO SCH (09:19)
[2020-10-18] MEDS: EZETIMIBE 10 MG TABLET PO SCH (09:19)
[2020-10-18] MEDS: ASPIRIN EC 81 MG TABLET PO SCH (09:19)
[2020-10-18] MEDS: FLECAINIDE 100 MG TABLET PO SCH (09:19)
[2020-10-18] MEDS: GABAPENTIN 100 MG CAPSULE PO SCH (09:20)
[2020-10-18] MEDS: CETIRIZINE 10 MG TABLET PO SCH (09:20)
[2020-10-18] MEDS: DILTIAZEM CD 240 MG CAPSULE PO SCH (09:20)
[2020-10-18] MEDS: APIXABAN 5 MG TABLET PO SCH (09:20)
[2020-10-18] MEDS: PANTOPRAZOLE 40 MG TABLET PO SCH (09:20)
[2020-10-18] MEDS: BUDESONIDE/FORMOTEROL 160-4.5 INHALER 6 GM INH SCH (09:21)
[2020-10-18] MEDS: FLUTICASONE 50 MCG NASAL SPRAY 16 GM BOTTLE BOTH NARES SCH (09:21)
[2020-10-18 13:26] VITALS: BP 123/88
== END 2020-10-18 14:38 | disposition home or self-care (01) ==
LOC: N.EDINP 00:12 → N.ED 00:12 → SUATTDRO 04:31 → N.TELEN 04:41
PROVIDERS: ADMIT Internal Medicine; ATTEND Emergency Medicine